=== PATIENT | male | born 2000 | race Caucasian/White ===

== ENCOUNTER 2022-05-03 13:04 | Outpatient (REF) | payer OTHER, SELFPAY ==
--- NOTE | ~2022-05-03 | XR_ITS ---
EXAMINATION: XR HAND, RIGHT CLINICAL INFORMATION: Contusion COMPARISON:
== END 2022-05-03 13:05 | disposition home or self-care (01) ==
LOC: HO.HMGCX 13:04
PROVIDERS: PCP Pediatrics; Visit Provider Internal Medicine
DX: S60.221A Contusion of right hand, initial encounter (principal); X58.XXXA Exposure to other specified factors, initial encounter; Y93.9 Activity, unspecified; Y92.9 Unspecified place or not applicable; Y99.8 Other external cause status
CPT/HCPCS: 73130

== ENCOUNTER → 2022-05-07 10:31 | Outpatient (BNVA) | payer OTHER, SELFPAY | PROVIDERS: PCP Pediatrics; Visit Provider Physician Assistant | DX: S62.336A Displaced fracture of neck of fifth metacarpal bone, right hand, initial encounter for closed fracture (principal) | CPT/HCPCS: 29085 ==

== ENCOUNTER 2022-06-04 07:59 | Outpatient (REF) | payer OTHER, SELFPAY ==
--- NOTE | ~2022-06-04 | XR_ITS ---
EXAMINATION: XR HAND, RIGHT CLINICAL INFORMATION: Right hand pain. COMPARISON: None TECHNIQUE: PA, lateral, and oblique views of the right hand. FINDINGS: Again seen is a boxer's fracture involving the 5th metacarpal. Alignment is same when compared to the prior study. No significant interval healing or periosteal fusion has taken place. XR/XR hand RT min 3V IMPRESSION: Continued presence of boxer's fracture 5th metacarpal.
== END 2022-06-04 08:00 | disposition home or self-care (01) ==
LOC: HO.HOSX 07:59
PROVIDERS: Visit Provider Physician Assistant
DX: M79.641 Pain in right hand (principal)
CPT/HCPCS: 73130

== ENCOUNTER 2022-07-30 16:51 | Outpatient (REF) | payer OTHER, SELFPAY ==
--- NOTE | ~2022-07-30 | XR_ITS ---
EXAMINATION: XR HAND, RIGHT CLINICAL INFORMATION: Pain COMPARISON: 06/04/2022 TECHNIQUE: PA, lateral, and oblique views of the right hand. FINDINGS: Healed anteriorly angulated boxer fracture neck of the fifth metacarpal. No new fractures. No destructive bone lesion, bone alignments otherwise satisfactory. Metacarpophalangeal and interphalangeal joints are normal. XR/XR hand RT min 3V IMPRESSION: Healed anteriorly angulated Boxer's fracture neck of the fifth metacarpal.
== END 2022-07-30 16:52 | disposition home or self-care (01) ==
LOC: HO.HOSX 16:51
PROVIDERS: Visit Provider Physician Assistant
DX: S62.336D Displaced fracture of neck of fifth metacarpal bone, right hand, subsequent encounter for fracture with routine healing (principal)
CPT/HCPCS: 73130

== ENCOUNTER 2023-02-10 13:37 | Emergency (ER) | payer OTHER, SELFPAY ==
--- NOTE | ~2023-02-10 | CT_ITS ---
EXAMINATION: CT ABDOMEN AND PELVIS WITH CONTRAST CLINICAL INFORMATION: Diffuse abdominal pain, vomiting. COMPARISON: None available. TECHNIQUE: Multidetector volumetric images were obtained from the superior aspect of the liver through the pubic symphysis following administration 85 mL of Omnipaque 350 intravenous contrast. Sagittal and coronal reformatted images were obtained on the technologist's workstation. Oral contrast: No This CT examination was performed using dose optimization techniques as appropriate, variously including the following: *Automated exposure control *Adjustment of mA and/or kV according to patient size (this includes techniques or standardized protocols for targeted exams where dose is matched to indication/reason for exam; i.e. extremities or head) *Use of iterative reconstruction technique DLP: 495 mGy-cm FINDINGS: LUNG BASES: The visualized lung bases are unremarkable. LIVER, GALLBLADDER, AND BILIARY TREE: The liver is normal in size, shape, and attenuation. No focal hepatic lesion or biliary ductal dilatation is present. The gallbladder is unremarkable with no evidence of radiopaque gallstones, gallbladder wall thickening, or obvious pericholecystic inflammatory changes. PANCREAS: Unremarkable. SPLEEN: Unremarkable. ADRENAL GLANDS: Unremarkable. KIDNEYS AND URETERS: The kidneys are normal in size, shape, and attenuation. No hydronephrosis, hydroureter, or calculi seen. No perinephric stranding. BLADDER: Unremarkable. GASTROINTESTINAL TRACT: The small and large bowel are unremarkable. The appendix is unremarkable. ABDOMINAL WALL: No significant hernia is appreciated. LYMPH NODES: Normal. VASCULAR: Unremarkable. PELVIC VISCERA: Unremarkable. OSSEOUS STRUCTURES: Unremarkable. CT/CT abdomen pelvis w IV con IMPRESSION: No acute abnormality to explain the patient's symptoms.
[2023-02-10 13:48] VITALS: BP 152/86; PULSE 124; RESP 18; TEMP 36.4; O2SAT 96; BMI 28.0
--- NOTE | 2023-02-10 13:52 | ED_ITS ---
HPI - Abdominal Pain General Chief Complaint: Abdominal Pain Stated Complaint: vomiting, chills, pale Time Seen by Provider: 02/10/23 17:00 Source: patient Mode of arrival: ambulatory Limitations: no limitations History of Present Illness HPI narrative: 22-year-old male presents to the ED for abdominal pain and vomiting starting today. Patient denies any a symptoms, flank pain, or back pain. Patient states some diarrhea Related Data Previous Rx's Medication Instructions Recorded naproxen 500 mg tablet 500 mg PO BID PRN pain 7 days #14 02/10/23 tabs Allergies Allergy/AdvReac Type Severity Reaction Status Date / Time No Known Allergies Allergy Verified 11/29/22 12:47 Review of Systems Review of Systems abdominal pain, diarrhea, vomiting Yes all other systems are reviewed and are negative [facility] Past Medical History Surgical History (Updated 05/07/22 @ 10:57 by Malu Benavides RN) Hx of tonsillectomy Social History Social History (Updated 05/07/22 @ 10:56 by Malu Benavides RN) Patient Tobacco Use Status: Never used Tobacco Smoked in Last 30 Days: No Use of substances other than those prescribed or required for medical reasons: No Advance Directives: No Advance Directives Information Provided: No Current occupational status: other Current occupation: Right handed, not currently working and not a student currently Physical Exam ED Vital Signs: Vital Signs - 24 hr 02/10/23 13:48 02/10/23 16:58 02/10/23 18:00 Temperature 97.6 F 98.9 F 99.7 F Pulse Rate 124 H 119 H Respiratory Rate 18 16 Blood Pressure 152/86 H 129/77 130/74 Pulse Oximetry 96 97 Oxygen Delivery Method Room Air Room Air 02/10/23 19:29 02/10/23 20:46 02/10/23 23:25 Temperature 99.0 F 99.5 F 97.9 F Pulse Rate 130 H 120 H 110 H Respiratory Rate 18 18 14 Blood Pressure 130/72 129/71 127/76 Pulse Oximetry 99 99 96 Oxygen Delivery Method Room Air Room Air Room Air BMI result Body Mass Index 28.0 Const General: cooperative, healthy appearing, comfortable, no acute distress, well developed and alert Orientation/consciousness: oriented to person, oriented to place, oriented to time and patient oriented x3 HENMT Head: Yes normal to inspection, Yes No palpable skull fracture present, Yes normocephalic, Yes atraumatic and No abrasion Ears: hearing grossly normal bilaterally, external ears normal, TM's normal bilaterally, TM normal on the right, TM normal on the left, EAC's normal, mastoids normal and no periauricular adenopathy Throat: Yes posterior oropharynx normal, Yes tonsils normal and Yes uvula midline Neck Neck: Yes normal visual inspection, Yes full ROM, Yes no lymphadenopathy, Yes no meningeal signs, Yes trachea midline, Yes supple, No anterior neck swelling and No tender Chest Chest palpation & inspection: normal inspection of the chest and normal palpation of entire chest wall Resp Effort & Inspection: normal respiratory effort and able to speak in complete sentences Auscultation: clear to auscultation bilaterally Cardio Jugular venous distension: no JVD Heart sounds: S1 normal heart sound present and S2 normal heart sound present GI Inspection: Yes normal to inspection and No abdominal wall ecchymosis Palpation (GI): Soft to palpation, not firm, nontender, no guarding and not rigid General: No CVA tenderness and Yes no CVA tenderness Back/Spine/Pelvis Back: no CVA tenderness, No CVA tenderness and No back tenderness Skin General skin exam: no rashes or lesions noted, elasticity normal and turgor normal Neuro General: oriented to person, oriented to place, oriented to time, patient oriented x3, gait normal, tone normal, moves all extremities, Normal light touch and pain sensation, no meningeal signs, no focal motor deficits, CN's II-XI intact bilaterally and normal sensation to monofilament Extrem General: Yes normal to inspection and Yes full ROM Psych Appearance: grossly normal, well kempt and not disheveled Course Course Course Narrative: This is a rapid medical exam. Deferred additional HPI, ROS, PE to primary provider. 22yo male with no medical history here with abdominal pain, vomiting today. No fevers, chills, diarrhea, urinary symptoms, constipation. +diffuse abdominal pain on exam. WIll need labs, UA, covid screen. Will give SL zofran +tachy in triage, all other vss Reevaluation(s) Reevaluation #1: Lactic improved after 3rd liter of IV fluids, patient unable to provide stool sample in ED. Strict return precautions discussed. Will discharge home as admission was discussed with Dr. Parikh by previous provider. Time: 00:00 Medical Decision Making Medical Decision Making MDM Narrative: 22-year-old male presents to ED for abdominal pain, vomiting, and diarrhea beginning today. Patient denies any dysuria, hematuria, or symptoms. Abdominal CT scan came back normal. White blood cell count extremity and his wound elevated lactate patient was given Zosyn. UA came back showing blood but no UTI. Discussed with hospitalist of the [facility] who states patient could be discharged most likely has viral syndrome and no need to consult surgery. He states patient does not have a UTI. Abdominal exam on re-evaluation benign and nontender on palpation. Negative for guarding or peritonitis. patient denies any testicular pain, scrotal pain, penile discharge, penile lesions. Differential Diagnosis Differential Diagnoses: The differential diagnosis associated with the presentation includes ( Appendicitis, cholecystitis, gallstones, kidney stones, pyelonephritis, UTI, for) Admission/Observation Consideration of admission/observation: Escalation of care including ad mission/observation considered Consult Healthcare Provider Management of the patient was discussed with: Narrative Writer ([facility] Lab Data [facility] Lab Attestation statement: I reviewed the patient's lab results. 02/10/23 14:39 02/10/23 14:39 Labs: Lab Results 02/10/23 02/10/23 02/10/23 Range/Units 14:39 14:39 14:39 WBC 17.3 H (4.8-10.8) X10*3/uL RBC 5.62 (4.60-5.80) X10*6/uL Hgb 16.7 (14.0-18.0) g/dl Hct 48.0 (42.0-52.0) % MCV 85.4 (80.0-98.0) fL MCH 29.7 (27.0-33.0) pg MCHC 34.8 (31.0-36.0) g/dl RDW 12.4 (11.0-16.0) % Plt Count 274 (160-400) X10*3/uL MPV 10.2 (9.4-12.4) fL Immature Gran % (Auto) 0.4 (0.0-0.4) % Neut % (Auto) 93.3 H (45-73) % Lymph % (Auto) 1.9 L (20-40) % Mcpherson % (Auto) 4.2 (2-11) % Eos % (Auto) 0.0 (0-4) % Baso % (Auto) 0.2 (0-2) % Lymph # (Auto) 0.3 L (1.2-4.9) X10*3/uL Mcpherson # (Auto) 0.7 (0.1-1.2) X10*3/uL Eos # (Auto) 0.0 (0.0-0.4) X10*3/uL Baso # (Auto) 0.0 (0.0-0.2) X10*3/uL Abs Immat Gran (auto) 0.07 H (0.00-0.03) X10*3/uL Absolute Neuts (auto) 16.2 H (2.0-8.3) x10*3/uL Absolute Nucleated RBC 0.000 (0.0-0.012) X10*3/uL Nucleated RBC % (auto) 0.0 (0.0-0.2) /100WBC Smear Tech's Comments VERIFIED Sodium 139 (135-145) mmol/L Potassium 3.9 (3.3-5.1) mmol/L Chloride 104 (96-108) mmol/L Carbon Dioxide 22 (22-29) mmol/L Anion Gap 17 (12-20) BUN 13 (9-16) mg/dL Creatinine 0.81 (0.5-1.4) mg/dL Estim Creat Clear Calc 138.7 Estimated GFR > 60 Random Glucose 114 (60-115) mg/dL Lactic Acid (0.5-2.0) mmol/L Lactic Acid F/U @ 2Hr (0.5-2.0) mmol/L Lactic Acid F/U @ 4Hr (0.5-2.0) mmol/L Calcium 9.9 (8.4-10.2) mg/dL Total Bilirubin 1.3 H (0.0-1.0) mg/dL Direct Bilirubin 0.4 (0.0-0.5) mg/dL AST 28 (5-37) U/L ALT 47 H (0-40) U/L Alkaline Phosphatase 62 (39-117) U/L Total Protein 8.0 (6.5-8.0) g/dL Albumin 4.9 (3.5-5.0) g/dL Lipase 9 (8-78) U/L Urine Color Urine Appearance Urine pH (5.0-9.0) Ur Specific Worthing (1.005-1.025) Urine Protein (Neg-Trace) mg/dL Urine Glucose (UA) (Negative) mg/dL Urine Ketones (Negative) mg/dL Urine Blood (Negative) Urine Nitrite (Negative) Ur Leukocyte Esterase (Negative) Urine RBC (0-2) /HPF Urine WBC (0-5) /HPF Ur Squamous Epith Cells (0-2) /HPF Urine Bacteria (None Seen) Hyaline Casts (0-2) /LPF COVID-19 (SCOTT) Negative (Negative) COVID-19 Clin Com See Note 02/10/23 02/10/23 02/10/23 Range/Units 15:07 17:07 19:53 WBC (4.8-10.8) X10*3/uL RBC (4.60-5.80) X10*6/uL Hgb (14.0-18.0) g/dl Hct (42.0-52.0) % MCV (80.0-98.0) fL MCH (27.0-33.0) pg MCHC (31.0-36.0) g/dl RDW (11.0-16.0) % Plt Count (160-400) X10*3/uL MPV (9.4-12.4) fL Immature Gran % (Auto) (0.0-0.4) % Neut % (Auto) (45-73) % Lymph % (Auto) (20-40) % Mcpherson % (Auto) (2-11) % Eos % (Auto) (0-4) % Baso % (Auto) (0-2) % Lymph # (Auto) (1.2-4.9) X10*3/uL Mcpherson # (Auto) (0.1-1.2) X10*3/uL Eos # (Auto) (0.0-0.4) X10*3/uL Baso # (Auto) (0.0-0.2) X10*3/uL Abs Immat Gran (auto) (0.00-0.03) X10*3/uL Absolute Neuts (auto) (2.0-8.3) x10*3/uL Absolute Nucleated RBC (0.0-0.012) X10*3/uL Nucleated RBC % (auto) (0.0-0.2) /100WBC Smear Tech's Comments Sodium (135-145) mmol/L Potassium (3.3-5.1) mmol/L Chloride (96-108) mmol/L Carbon Dioxide (22-29) mmol/L Anion Gap (12-20) BUN (9-16) mg/dL Creatinine (0.5-1.4) mg/dL Estim Creat Clear Calc Estimated GFR Random Glucose (60-115) mg/dL Lactic Acid 2.4 H* (0.5-2.0) mmol/L Lactic Acid F/U @ 2Hr 2.4 H* (0.5-2.0) mmol/L Lactic Acid F/U @ 4Hr (0.5-2.0) mmol/L Calcium (8.4-10.2) mg/dL Total Bilirubin (0.0-1.0) mg/dL Direct Bilirubin (0.0-0.5) mg/dL AST (5-37) U/L ALT (0-40) U/L Alkaline Phosphatase (39-117) U/L Total Protein (6.5-8.0) g/dL Albumin (3.5-5.0) g/dL Lipase (8-78) U/L Urine Color Dark Yellow Urine Appearance Clear Urine pH 6.5 (5.0-9.0) Ur Specific [place] 1.025 (1.005-1.025) Urine Protein Trace (Neg-Trace) mg/dL Urine Glucose (UA) Negative (Negative) mg/dL Urine Ketones 40 (Negative) mg/dL Urine Blood Trace H (Negative) Urine Nitrite Negative (Negative) Ur Leukocyte Esterase Trace H (Negative) Urine RBC 11-20 H (0-2) /HPF Urine WBC 0-5 (0-5) /HPF Ur Squamous Epith Cells 0-2 (0-2) /HPF Urine Bacteria None Seen (None Seen) Hyaline Casts 0-2 (0-2) /LPF COVID-19 (SCOTT) (Negative) COVID-19 Clin Com 02/10/23 Range/Units 23:17 WBC (4.8-10.8) X10*3/uL RBC (4.60-5.80) X10*6/uL Hgb (14.0-18.0) g/dl Hct (42.0-52.0) % MCV (80.0-98.0) fL MCH (27.0-33.0) pg MCHC (31.0-36.0) g/dl RDW (11.0-16.0) % Plt Count (160-400) X10*3/uL MPV (9.4-12.4) fL Immature Gran % (Auto) (0.0-0.4) % Neut % (Auto) (45-73) % Lymph % (Auto) (20-40) % Mcpherson % (Auto) (2-11) % Eos % (Auto) (0-4) % Baso % (Auto) (0-2) % Lymph # (Auto) (1.2-4.9) X10*3/uL Mcpherson # (Auto) (0.1-1.2) X10*3/uL Eos # (Auto) (0.0-0.4) X10*3/uL Baso # (Auto) (0.0-0.2) X10*3/uL Abs Immat Gran (auto) (0.00-0.03) X10*3/uL Absolute Neuts (auto) (2.0-8.3) x10*3/uL Absolute Nucleated RBC (0.0-0.012) X10*3/uL Nucleated RBC % (auto) (0.0-0.2) /100WBC Smear Tech's Comments Sodium (135-145) mmol/L Potassium (3.3-5.1) mmol/L Chloride (96-108) mmol/L Carbon Dioxide (22-29) mmol/L Anion Gap (12-20) BUN (9-16) mg/dL Creatinine (0.5-1.4) mg/dL Estim Creat Clear Calc Estimated GFR Random Glucose (60-115) mg/dL Lactic Acid (0.5-2.0) mmol/L Lactic Acid F/U @ 2Hr (0.5-2.0) mmol/L Lactic Acid F/U @ 4Hr 1.8 (0.5-2.0) mmol/L Calcium (8.4-10.2) mg/dL Total Bilirubin (0.0-1.0) mg/dL Direct Bilirubin (0.0-0.5) mg/dL AST (5-37) U/L ALT (0-40) U/L Alkaline Phosphatase (39-117) U/L Total Protein (6.5-8.0) g/dL Albumin (3.5-5.0) g/dL Lipase (8-78) U/L Urine Color Urine Appearance Urine pH (5.0-9.0) Ur Specific [place] (1.005-1.025) Urine Protein (Neg-Trace) mg/dL Urine Glucose (UA) (Negative) mg/dL Urine Ketones (Negative) mg/dL Urine Blood (Negative) Urine Nitrite (Negative) Ur Leukocyte Esterase (Negative) Urine RBC (0-2) /HPF Urine WBC (0-5) /HPF Ur Squamous Epith Cells (0-2) /HPF Urine Bacteria (None Seen) Hyaline Casts (0-2) /LPF COVID-19 (SCOTT) (Negative) COVID-19 Clin Com Independent Interpretation I performed an independent interpretation of an: CT Scan Radiology Impression Discussion of test interpretation with radiology: I have reviewed the radiologis t's reading. Independent Historian Clinical information obtained from an independent historian. History obtained from or confirmed by: Other (Mother) External Record Review External record reviewed: Other (Prior ED visit) Prescription Management I considered prescription management with: Pain Medication Medications Administered Discontinued Medications Generic Name Dose Route Start Last Admin Trade Name Freq PRN Reason Stop Dose Admin Al Hydroxide/Mg Hydroxide 30 ml 02/10/23 19:26 02/10/23 19:56 Magnesium Hydrox/Alum Hydrox 30 Ml Oral.Susp PO 02/10/23 19:27 30 ml ONCE ONE Administration Sodium Chloride 1,000 mls @ 999 mls/hr 02/10/23 16:50 02/10/23 18:47 Ns IV 02/10/23 17:50 Infused .Q1H1M STA Infusion Piperacillin Sod/Tazobactam 50 mls @ 100 mls/hr 02/10/23 17:39 02/10/23 18:47 Sod 3.375 gm/ Sodium Chloride IV 02/10/23 18:08 Infused ONCE ONE Infusion Sodium Chloride 2,289 mls @ 2,289 mls/hr 02/10/23 17:53 02/10/23 20:34 Ns 30 ml/kg infuse over 1 hr (2289 ml) 02/10/23 18:52 Infused IV Infusion .Q1H STA Sodium Chloride 1,000 mls @ 999 mls/hr 02/10/23 20:45 02/10/23 23:13 Ns IV 02/10/23 21:45 Infused .Q1H1M SHERYL Infusion Iohexol 100 ml 02/10/23 17:25 02/10/23 17:26 Iohexol 350 Mg/Ml 100 Ml Infus..Btl IV 02/10/23 17:26 85 ml ONCE ONE Administration Ketorolac Tromethamine 30 mg 02/10/23 19:24 02/10/23 19:55 Ketorolac Tromethamine 30 Mg/Ml Vial IVPUSH 02/10/23 19:25 30 mg ONCE ONE Administration Ondansetron HCl 4 mg 02/10/23 13:54 02/10/23 14:01 Ondansetron Odt 4 Mg Tab.Rapdis TRANSLINGU 02/10/23 13:55 4 mg ONCE ONE Administration Discharge Plan Discharge Clinical Impression: Abdominal pain, Gastroenteritis Patient Disposition: Home, Self-Care Instructions: Gastroenteritis (ED), Abdominal Pain (ED) Additional Instructions: Return to the ED immediately for any worsening abdominal pain, flank pain, fever, chills, nausea, vomiting, retractable diarrhea, blood in stool, testicular pain, scrotal pain, penile discharge, penile lesions, dysuria, hematuria, flank pain, back pain, or any other concerning symptoms. Please follow up with PCP Prescriptions: New naproxen 500 mg tablet 500 mg PO BID PRN (Reason: pain) 7 Days Qty: 14 0RF Stand Alone Forms: Work/School Release Interventions: ED Discharge Assessment Last Done: 02/11/23 00:15 Discharge Date/Time: 02/11/23 00:17 Print Language: Citizen [place]
[2023-02-10] MEDS: Ondansetron ODT 4 MG TAB.RAPDIS TRANSLINGU (14:01)
[2023-02-10 14:56] LABS: Basophils Percent Auto 0.2 % (0-2); Hemoglobin 16.7 g/dl (14.0-18.0); Imm Gran Abs Auto 0.07 X10*3/uL (0.00-0.03); Imm Gran Pct Auto 0.4 % (0.0-0.4); Lymphocytes Absolute Auto 0.3 X10*3/uL (1.2-4.9); Lymphocytes Percent Auto 1.9 % (20-40); MANUAL DIFF FLAG SCAN; Mean Corpuscular HGB Conc 34.8 g/dl (31.0-36.0); Mean Corpuscular Hemoglobin 29.7 pg (27.0-33.0); Mean Corpuscular Volume 85.4 fL (80.0-98.0); Mean Platelet Volume 10.2 fL (9.4-12.4); Monocytes Absolute Auto 0.7 X10*3/uL (0.1-1.2); Monocytes Percent Auto 4.2 % (2-11); Neutrophils Absolute Auto 16.2 x10*3/uL (2.0-8.3); Neutrophils Percent Auto 93.3 % (45-73); Platelet Count 274 X10*3/uL (160-400); Red Blood Count 5.62 X10*6/uL (4.60-5.80); Red Cell Distribution Width 12.4 % (11.0-16.0); SCAN SMEAR FLAG 1; White Blood Count 17.3 X10*3/uL (4.8-10.8)
[2023-02-10 15:18] LABS: Alanine Aminotransferase 47 U/L (0-40); Albumin Level 4.9 g/dL (3.5-5.0); Alkaline Phosphatase 62 U/L (39-117); Anion Gap 17 (12-20); Aspartate Amino Transferase 28 U/L (5-37); Bilirubin Direct 0.4 mg/dL (0.0-0.5); Bilirubin Total 1.3 mg/dL (0.0-1.0); Blood Urea Nitrogen 13 mg/dL (9-16); Calcium 9.9 mg/dL (8.4-10.2); Carbon Dioxide 22 mmol/L (22-29); Chloride 104 mmol/L (96-108); Creatinine Clr Calc Pharmacy 138.7; Estimated Glomerular Filt Rate > 60; Glucose Random 114 mg/dL (60-115); Lipase 9 U/L (8-78); Potassium 3.9 mmol/L (3.3-5.1); Sodium 139 mmol/L (135-145)
[2023-02-10 15:20] LABS: Appearance Urine Clear; Color Urine Dark Yellow; Glucose Urine UA Negative (Negative); Leukocyte Esterase Urine Trace (Negative); Nitrite Urine Negative (Negative); PH 6.5 (5.0-9.0); Specific Gravity - Urine 1.025 (1.005-1.025); UMIC TRIGGER UACC YES; Urine Blood Trace (Negative); Urine Ketones 40 mg/dL (Negative); Urine Protein Trace mg/dL (Neg-Trace)
[2023-02-10 15:25] LABS: Bacteria Urine None Seen (None Seen); Hyaline Casts Urine 0-2 /LPF (0-2); Squamous Epithelial Cell Urine 0-2 /HPF (0-2); WBC Urine 0-5 /HPF (0-5)
[2023-02-10 15:38] LABS: SLIDE REVIEW VERIFIED
[2023-02-10 15:55] LABS: COVID-19 Test Negative (Negative); IDNOW Serial# BCCEAD1C
[2023-02-10 16:58] VITALS: BP 129/77; TEMP 37.2
[2023-02-10] MEDS: 0.9 % Sodium Chloride 1,000 ML 999 ML IV ×2 (17:18→21:22)
[2023-02-10] MEDS: iohexoL 350 MG/ML 100 ML INFUS..BTL IV (17:26)
[2023-02-10 17:37] LABS: Lactic Acid 2.4 mmol/L (0.5-2.0)
[2023-02-10] MEDS: Piperacillin Sodium/Tazobactam 3.375 GM in 0.9 % Sodium Chloride 50 ML IV (17:53)
[2023-02-10 18:00] VITALS: BP 130/74; PULSE 119; RESP 16; TEMP 37.6; O2SAT 97
--- NOTE | 2023-02-10 18:00 | PC.NURSE ---
first L of fluids and antibiotics infusing. waiting CT results. offering no complaints, call king in reach. tm
[2023-02-10] MEDS: SODIUM CHLORIDE 2289 ML IV (18:05)
[2023-02-10 19:15] LABS: Reflex Lactate? Lactic Acid Added
[2023-02-10 19:29] VITALS: BP 130/72; PULSE 130; RESP 18; TEMP 37.2; O2SAT 99
--- NOTE | 2023-02-10 19:30 | MHC.EDTECH ---
This tech assumed care of pt at 1900, vitals taken and pt's heart rate was elevated at 130 RN and PA were made aware. Patient was incont of liquid stool,pt in the bathroom getting cleaned at this time, will draw repeat lactic when pt is in room. RN aware
--- NOTE | 2023-02-10 19:30 | PC.NURSE ---
Spoke with mother of patient. Mother states that her son woke up yesterday with his eyes stuck shut. She took him to his quoter for evaluation. Today, patient presents with a cough. Resp even and unlabored. Appears comfortable. Mother states that he has had 3 wet diapers today.
[2023-02-10] MEDS: Ketorolac Tromethamine 30 MG/ML VIAL IVPUSH (19:55)
[2023-02-10] MEDS: Magnesium Hydrox/Alum Hydrox 30 ML ORAL.SUSP PO (19:56)
[2023-02-10 20:13] LABS: ~Lactic Acid-LAB USE ONLY 2.4 mmol/L (0.5-2.0)
[2023-02-10 20:46] VITALS: BP 129/71; PULSE 120; RESP 18; TEMP 37.5; O2SAT 99
[2023-02-10 21:57] LABS: Reflex Lactate? 2 Y
--- NOTE | 2023-02-10 22:46 | MHC.EDTECH ---
This tech went to draw a 3rd lactic, Pts fluids were still full the provider Jesenia MANRIQUE told this tech to have RN place a pressure bag and to wait to draw the repeat latic until fluids are done. LUBNA Gamble was made aware
[2023-02-10 23:25] VITALS: BP 127/76; PULSE 110; RESP 14; TEMP 36.6; O2SAT 96
[2023-02-10 23:48] LABS: ~Lactic Acid-LAB USE ONLY 1.8 mmol/L (0.5-2.0)
== END 2023-02-11 00:17 | disposition home or self-care (01) ==
PROVIDERS: Nurse Practitioner Family; Emergency Provider Student in an Organized Health Care Education/Training Program; PCP Pediatrics
DX: K52.9 Noninfective gastroenteritis and colitis, unspecified (principal); R10.2 Pelvic and perineal pain; R11.2 Nausea with vomiting, unspecified; Z79.899 Other long term (current) drug therapy; Z20.822 Contact with and (suspected) exposure to COVID-19; Z20.828 Contact with and (suspected) exposure to other viral communicable diseases
CPT/HCPCS: 36415; 74177; 80048; 80076; 81001; 83605; 83690; 85025; 87040; 87635; 96361; 96374; 96375; 99285; J1885; J2543; Q9967

== ENCOUNTER 2024-11-27 14:03 | Emergency (ER) | payer OTHER, SELFPAY ==
--- NOTE | ~2024-11-27 | CT_ITS ---
CLINICAL HISTORY: lower abdominal pain, bleeding, eval for colitis CT abdomen and pelvis with contrast Comparison: CT/AK/SR - CT ABDOMEN PELVIS W IV CON - 02/10/23 17:19 EDT Findings: No consolidation or effusion. Unremarkable gallbladder and solid organs. No urolithiasis. No bowel obstruction, pneumoperitoneum, or pneumatosis. Wall thickening versus underdistention of the descending colon. Pelvic contents unremarkable. Normal appendix. The bones are intact. IMPRESSION: Colitis versus underdistention of the descending colon. No perforation or abscess. This document has been electronically signed by: Tevin Sanchez MD on 11/27/2024 18:49:20
[2024-11-27 14:47] VITALS: BP 122/84; PULSE 92; RESP 16; TEMP 37; O2SAT 100; BMI 28.6
--- NOTE | 2024-11-27 14:50 | ED.ABDPAIN ---
HPI - Abdominal Pain General Chief Complaint: Abdominal Pain Stated Complaint: abd pain Time Seen by Provider: 11/27/24 16:32 Source: patient and family Mode of arrival: ambulatory Limitations: no limitations History of Present Illness ED Provider: Carie Palacios APRN HPI narrative: 24-year-old male with no known medical history presents the ER with complaints of lower abdominal discomfort which began this morning with bloody stools. Patient reports 3 episodes of bloody stools. Stool is mixed with bright red blood. No vomiting, urinary symptoms, fevers or chills. No recent travel. No recent antibiotic use. No sick contact. No personal or family history of inflammatory bowel disease. Related Data Previous Rx's ?Medication ?Instructions ?Recorded naproxen 500 mg tablet 500 mg PO BID PRN pain 7 days #14 02/10/23 tabs amoxicillin 875 mg-potassium 1 tab PO BID #14 tabs 11/27/24 clavulanate 125 mg tablet Allergies Allergy/AdvReac Type Severity Reaction Status Date / Time No Known Allergies Allergy Verified 11/27/24 14:52 Review of Systems Review of Systems Yes all other systems are reviewed and are negative Constitutional: Reports no additional constitutional complaints, Denies body ache(s), Denies chills, Denies fever(s), Denies headache(s) and Denies weakness Eyes: Reports no additional eye complaints and Denies change in vision Reports system reviewed and no additional complaints, except as documented, Denies dizziness, Denies headache(s), Denies nasal congestion, Denies nasal discharge and Denies neck pain Cardiovascular: Reports no additional cardiovascular complaints, Denies chest pain, Denies leg edema and Denies dyspnea Respiratory: Reports no additional respiratory complaints, Denies cough and Denies dyspnea Gastrointestinal: Reports no additional gastrointestinal complaints, Reports abdominal pain, Denies melena, Reports hematochezia, Denies diarrhea, Denies nausea and Denies vomiting Genitourinary: Denies urinary incontinence Musculoskeletal: Reports no additional musculoskeletal complaints, Denies back pain, Denies arthralgias, Denies joint swelling, Denies neck pain, Denies numbness and Denies tingling Skin/Breast: Reports system reviewed and no additional complaints, except as docu and Denies rash Reports system reviewed and no additional complaints, except as documented, Denies Abnormal speech present, Denies dizziness, Denies headache(s), Denies numbness, Denies tingling and Denies weakness PMF Past Medical History Attestation statement: The following information was validated with the patient. Source: old records reviewed and nursing notes reviewed Surgical History Hx of tonsillectomy Social History Social History Patient Tobacco Use Status: Never used Tobacco Smoked in Last 30 Days: No Use of substances other than those prescribed or required for medical reasons: No Advance Directives: No Advance Directives Information Provided: Yes Current occupational status: other Current occupation: Right handed, not currently working and not a student currently Physical Exam ED Vital Signs: Vital Signs - 24 hr 11/27/24 14:47 11/27/24 16:47 Temperature 98.6 F Pulse Rate 92 92 Respiratory Rate 16 18 Blood Pressure 122/84 129/71 Pulse Oximetry 100 99 Oxygen Delivery Method Room Air Room Air BMI result Body Mass Index 28.6 Const General: cooperative, healthy appearing, comfortable and no acute distress Orientation/consciousness: patient oriented x3 Limitations: no limitations HENMT Head: Yes normal to inspection Ears: hearing grossly normal bilaterally General nose exam: Normal external nose present Face and sinus: Yes normal facial exam Mouth: Normal oral and palatal mucosa present Throat: Yes posterior oropharynx normal Eyes General: appearance normal, both eyes and all related structures Pupils: Equal, round and reactive pupils present Neck Neck: Yes normal visual inspection Chest Chest palpation & inspection: normal inspection of the chest Resp Effort & Inspection: normal respiratory effort Auscultation: clear to auscultation bilaterally Cardio Rate: regular rate Rhythm: regular rhythm Peripheral pulses: Peripheral pulses 2+ throughout GI Other: BRB per rectum Inspection: Yes normal to inspection Palpation (GI): Soft to palpation, Tenderness to palpation present (GI) in the LLQ and in the RLQ; with no rebound tenderness and no guarding Auscultation: normal bowel sounds Rectal Exam - Male: Yes visual inspection normal, Yes normal sphincter tone and Yes heme positive stool Back/Spine/Pelvis Thoracic/Lumbar Spine: thoracic and lumbar spine normal to inspection Skin General skin exam: no rashes or lesions noted Neuro General: patient oriented x3, no focal motor deficits and normal sensation to monofilament Cranial nerves: Yes Equal, round and reactive pupils present Cognition (Neuro): normal cognition Speech: No Abnormal speech present Gait exam (Neuro): Normal gait present Motor exam (neuro): 5/5 motor strength present throughout Extrem General: Yes normal to inspection Course Course Course Narrative: This is an RME: Additional HPI, ROS, PE not included below will be deferred to primary provider. RME assessment and note performed by: Olga Farias PA-C This is a 17-lcla-rrd-male with no known medical problems, who presents to the ER with complaints of abdominal pain and diarrhea since this morning. Reporting that he did notice bright red blood per rectum in toilet and as well as on the toilet paper. No recent known food exposures, travel. No sick contacts. No vomiting. Patient was well-appearing, abdomen is soft, nontender. Plan: Labs, UA Reevaluation(s) Reevaluation #1: CT is consistent with colitis versus underdistention of the descending colon. Will discharge patient home with antibiotic and follow up outpatient. Reviewed worrisome signs and symptoms of when to return in the emergency room. Comfortable plan for discharge home Medical Decision Making Medical Decision Making MDM Narrative: 24-year-old male with no known medical history presents the ER with complaints of lower abdominal discomfort which began this morning with bloody stools. Patient reports 3 episodes of bloody stools. Stool is mixed with bright red blood. No vomiting, urinary symptoms, fevers or chills. No recent travel. No recent antibiotic use. No sick contact. No personal or family history of inflammatory bowel disease. TTP RLQ/LLQ with no rebound or guarding +BS Heme + stool-BRB per rectum VSS Will obtain labs, UA, occult, Ct A/P Differential Diagnosis Differential Diagnoses: The differential diagnosis associated with the presentation includes Colitis, diverticulitis,GIB, hemorrhoids, gastroenteritis Admission/Observation Consideration of admission/observation: Escalation of care including admission/observation considered No additional episodes of bloody stool since being here, labs are unremarkable with stable hemoglobin, vitals stable, abdomen nonacute Will discharge home with follow up outpatient Lab Data MDM Lab Attestation statement: I reviewed the patient's lab results. 11/27/24 15:20 11/27/24 15:20 Labs: Lab Results 11/27/24 11/27/24 Range/Units 15:20 15:58 WBC 13.3 H (4.8-10.8) X10*3/uL RBC 5.35 (4.60-5.80) X10*6/uL Hgb 15.8 (14.0-18.0) g/dl Hct 46.1 (42.0-52.0) % MCV 86.2 (80.0-98.0) fL MCH 29.5 (27.0-33.0) pg MCHC 34.3 (31.0-36.0) g/dl RDW 12.7 (11.0-16.0) % Plt Count 279 (160-400) X10*3/uL MPV 9.9 (9.4-12.4) fL Immature Gran % (Auto) 0.3 (0.0-0.4) % Neut % (Auto) 84.7 H (45-73) % Lymph % (Auto) 7.8 L (20-40) % [place] % (Auto) 6.7 (2-11) % Eos % (Auto) 0.1 (0-4) % Baso % (Auto) 0.4 (0-2) % Lymph # (Auto) 1.0 L (1.2-4.9) X10*3/uL [place] # (Auto) 0.9 (0.1-1.2) X10*3/uL Eos # (Auto) 0.0 (0.0-0.4) X10*3/uL Baso # (Auto) 0.1 (0.0-0.2) X10*3/uL Abs Immat Gran (auto) 0.04 H (0.00-0.03) X10*3/uL Absolute Neuts (auto) 11.3 H (2.0-8.3) x10*3/uL Absolute Nucleated RBC 0.000 (0.0-0.012) X10*3/uL Nucleated RBC % (auto) 0.0 (0.0-0.2) /100WBC Sodium 139 (135-145) mmol/L Potassium 4.2 (3.3-5.1) mmol/L Chloride 103 (96-108) mmol/L Carbon Dioxide 24 (22-29) mmol/L Anion Gap 16 (12-20) BUN 8 L (9-16) mg/dL Creatinine 0.79 (0.5-1.4) mg/dL Estim Creat Clear Calc 141.1 Estimated GFR > 60 Random Glucose 103 (60-115) mg/dL Calcium 9.9 (8.4-10.2) mg/dL Magnesium 1.9 (1.6-2.6) mg/dL Total Bilirubin 0.6 (0.0-1.0) mg/dL Direct Bilirubin 0.2 (0.0-0.5) mg/dL AST 44 H (5-37) U/L ALT 80 H (0-40) U/L Alkaline Phosphatase 83 (39-117) U/L Total Protein 8.2 H (6.5-8.0) g/dL Albumin 5.0 (3.5-5.0) g/dL Lipase 13 (8-78) U/L Urine Color Yellow Urine Appearance Clear Urine pH 6.0 (5.0-9.0) Ur Specific [place] 1.015 (1.005-1.025) Urine Protein Negative (Neg-Trace) mg/dL Urine Glucose (UA) Negative (Negative) mg/dL Urine Ketones Negative (Negative) mg/dL Urine Blood Small (1+) H (Negative) Urine Nitrite Negative (Negative) Ur Leukocyte Esterase Negative (Negative) Urine RBC 6-10 H (0-2) /HPF Urine WBC 0-5 (0-5) /HPF Ur Squamous Epith Cells 0-2 (0-2) /HPF Urine Bacteria None Seen (None Seen) Hyaline Casts 0-2 (0-2) /LPF Stool Occult Blood POSITIVE (NEGATIVE) C. difficile Tox B Gene NEGATIVE (Negative) Influenza Type A (PCR) NEGATIVE (Negative) Influenza Type B (PCR) NEGATIVE (Negative) RSV RNA Qual (PCR) NEGATIVE (Negative) SARS-CoV-2 RNA (RT-PCR) NEGATIVE (Negative) Independent Interpretation I performed an independent interpretation of an: CT Scan Interpretation: I independently reviewed the CAT scan agree with the radiology report Radiology Impression Discussion of test interpretation with radiology: I have reviewed the radiologist's reading. Radiologist Impression: [address] [address] [address] Scan Report Signed Patient: Galileo Vázquez MR#: [id number] : 2000 Acct:[id number] Age/Sex: 24 / M ADM Date: 11/27/24 Loc: HO.ED Attending Dr: Ordering Physician: Carie Palacios NP Date of Service: 11/27/24 Procedure(s): CT abdomen pelvis w IV con Accession Number(s): [id number] cc: Irma Figueredo MD; Carie Palacios NP~ Report Number: [id number]: Total DLP = 504.00 mGy-cm CLINICAL HISTORY: lower abdominal pain, bleeding, eval for colitis CT abdomen and pelvis with contrast Comparison: CT/LA/SR - CT ABDOMEN PELVIS W IV CON - 02/10/23 17:19 EDT Findings: No consolidation or effusion. Unremarkable gallbladder and solid organs. No urolithiasis. No bowel obstruction, pneumoperitoneum, or pneumatosis. Wall thickening versus underdistention of the descending colon. Pelvic contents unremarkable. Normal appendix. The bones are intact. IMPRESSION: Colitis versus underdistention of the descending colon. No perforation or abscess. Medications Administered Discontinued Medications Generic Name Dose Route Start Last Admin Trade Name Freq PRN Reason Stop Dose Admin Iohexol 100 ml 11/27/24 17:29 11/27/24 17:30 Iohexol 350 Mg/Ml 100 Ml Infus..Btl IV 11/27/24 17:30 85 ml ONCE ONE Administration Discharge Plan Discharge Clinical Impression: Abdominal pain, Colitis Instructions: Abdominal Pain (ED), Colitis (ED) Additional Instructions: Your blood work, urine testing Your Ct scan shows inflammation of the colon which can be seen with colitis. Avoid taking aspirin, Advil [place] diet Tylenol for pain as needed Please follow up outpatient with your primary care doctor Return to the emergency room for any worsening abdominal pain, fever >100.4, vomiting or increase in bloody stools, dizziness or weakness Prescriptions: New amoxicillin-pot clavulanate 875-125 mg tablet 1 tab PO BID Qty: 14 0RF No Action naproxen 500 mg tablet 500 mg PO BID PRN (Reason: pain) 7 Days Qty: 14 0RF Referrals: Irma Figueredo MD [Primary Care Provider] - 1 week Cole Stanford MD [Physician] - 1 week Print Language: Hebrew
[2024-11-27 15:26] LABS: MANUAL DIFF FLAG NO
[2024-11-27 15:28] LABS: Basophils Absolute Auto 0.1 X10*3/uL (0.0-0.2); Basophils Percent Auto 0.4 % (0-2); Eosinophils Percent Auto 0.1 % (0-4); Hematocrit 46.1 % (42.0-52.0); Hemoglobin 15.8 g/dl (14.0-18.0); Imm Gran Abs Auto 0.04 X10*3/uL (0.00-0.03); Imm Gran Pct Auto 0.3 % (0.0-0.4); Lymphocytes Percent Auto 7.8 % (20-40); Mean Corpuscular HGB Conc 34.3 g/dl (31.0-36.0); Mean Corpuscular Hemoglobin 29.5 pg (27.0-33.0); Mean Corpuscular Volume 86.2 fL (80.0-98.0); Mean Platelet Volume 9.9 fL (9.4-12.4); Monocytes Absolute Auto 0.9 X10*3/uL (0.1-1.2); Monocytes Percent Auto 6.7 % (2-11); Neutrophils Absolute Auto 11.3 x10*3/uL (2.0-8.3); Neutrophils Percent Auto 84.7 % (45-73); Platelet Count 279 X10*3/uL (160-400); Red Blood Count 5.35 X10*6/uL (4.60-5.80); Red Cell Distribution Width 12.7 % (11.0-16.0); White Blood Count 13.3 X10*3/uL (4.8-10.8)
[2024-11-27 15:29] LABS: Appearance Urine Clear; Color Urine Yellow; Glucose Urine UA Negative (Negative); Leukocyte Esterase Urine Negative (Negative); Nitrite Urine Negative (Negative); Specific Gravity - Urine 1.015 (1.005-1.025); UMIC TRIGGER UACC YES; Urine Blood Small (1+) (Negative); Urine Ketones Negative (Negative); Urine Protein Negative (Neg-Trace)
[2024-11-27 15:42] LABS: Bacteria Urine None Seen (None Seen); Hyaline Casts Urine 0-2 /LPF (0-2); Squamous Epithelial Cell Urine 0-2 /HPF (0-2); WBC Urine 0-5 /HPF (0-5)
[2024-11-27 15:46] LABS: Anion Gap 16 (12-20)
[2024-11-27 16:21] LABS: Alanine Aminotransferase 80 U/L (0-40); Aspartate Amino Transferase 44 U/L (5-37); Bilirubin Direct 0.2 mg/dL (0.0-0.5); Bilirubin Total 0.6 mg/dL (0.0-1.0); Blood Urea Nitrogen 8 mg/dL (9-16); Calcium 9.9 mg/dL (8.4-10.2); Carbon Dioxide 24 mmol/L (22-29); Chloride 103 mmol/L (96-108); Creatinine Clr Calc Pharmacy 141.1; Estimated Glomerular Filt Rate > 60; Glucose Random 103 mg/dL (60-115); Lipase 13 U/L (8-78); Magnesium 1.9 mg/dL (1.6-2.6); Potassium 4.2 mmol/L (3.3-5.1); Sodium 139 mmol/L (135-145); Total Protein 8.2 g/dL (6.5-8.0)
[2024-11-27 16:36] LABS: Influenza A PCR NEGATIVE (Negative); Influenza B PCR NEGATIVE (Negative); Resp Syncy Virus RNA Qual PCR NEGATIVE (Negative); SARS COV2 PCR INHOUSE NEGATIVE (Negative)
[2024-11-27 16:43] LABS: Alkaline Phosphatase 83 U/L (39-117)
[2024-11-27 16:47] VITALS: BP 129/71; PULSE 92; RESP 18; O2SAT 99
--- OUTSIDE RECORDS SUMMARY | 2024-11-27 16:51 | XMS_ITS | Encounter Summary ---
Author Organization [facility] Address [address] [place] [address] Phone Care Team Providers Care Beveling Machine Operator Name Role Phone Kaveh Palacios MD Primary Care Provider Encounter Details Date Type Department Care Team (Late st Contact Info) Description 04/25/2015 Documentation [facility] [place] [address] [place] [address] Family Medicine, Physician [address] [place] [address] Social History Tobacco Use Types Packs/Day Years Used Date Smoking Tobacco: Never Assessed Sex and Gender Information Value Date Recorded Sex Assigned at Not on file Legal Sex Male 5:07 PM EDT Gender Identity Not on file Sexual Orientation Not on file documented as of this encounter Plan of Treatment Not on file documented as of this encounter Visit Diagnoses Not on filedocumented in this encounter Care Teams Beveling Machine Operator Relationship Specialty Start Date End Date Kaveh Palacios MD [address] [facility] [place] [address] PCP - General Pediatrics 01/21/18 11/19/23 documented as of this encounter
--- OUTSIDE RECORDS SUMMARY | 2024-11-27 16:51 | XMS_ITS | Encounter Summary ---
Author Organization [facility] Address [address] [place] [address] Phone Care Team Providers Care Metal Cabinet Finisher Name Role Phone Kaveh Palacios MD Primary Care Provider Encounter Details Date Type Department Care Team (Late st Contact Info) Description 04/25/2015 Documentation [facility] [place] [address] [place] [address] Family Medicine, Physician [address] [place] [address] Social History Tobacco Use Types [...] on filedocumented in this encounter Care Teams Metal Cabinet Finisher Relationship Specialty Start Date End Date Kaveh Palacios MD [address] [facility] [place] [address] PCP - General Pediatrics 01/21/18 11/19/23 documented as of this encounter
--- OUTSIDE RECORDS SUMMARY | 2024-11-27 16:51 | XMS_ITS | Encounter Summary ---
Author Organization [facility] Address [address] [place] [address] Phone Care Team Providers Care Lead Game Designer Name Role Phone Kaveh Palacios MD Primary Care Provider Encounter Details Date Type Department Care Team (Late st Contact Info) Description 04/25/2015 Documentation [facility] [place] Family Medicine [address] [place] [address] Family Medicine, Physician [address] [place] [address] Social History Tobacco Use Types [...] on filedocumented in this encounter Care Teams Lead Game Designer Relationship Specialty Start Date End Date Kaveh Palacios MD [address] [facility] [place] [address] PCP - General Pediatrics 01/21/18 11/19/23 documented as of this encounter
--- OUTSIDE RECORDS SUMMARY | 2024-11-27 16:51 | XMS_ITS | Encounter Summary ---
Author Organization [facility] Address [address] [place] [address] Phone Care Team Providers Care Industrial Cook Name Role Phone Kaveh Palacios MD Primary Care Provider [phone] Encounter Details Date Type Department Care Team (Late st Contact Info) Description 04/25/2015 Documentation [facility] [place] Family Medicine [address] [place] [address] Family Medicine, Physician [address] [place] [address] Social History Tobacco Use Types [...] on filedocumented in this encounter Care Teams Industrial Cook Relationship Specialty Start Date End Date Kaveh Palacios MD [address] [facility] [place] [address] PCP - General Pediatrics 01/21/18 11/19/23 documented as of this encounter
--- OUTSIDE RECORDS SUMMARY | 2024-11-27 16:51 | XMS_ITS | Clinical Summary ---
Author Organization [facility] Address [address] [place] [address] Phone Care Team Providers Care Postulant Name Role Phone Unavailable Primary Care Provider Unavailabl e Allergies No known active allergies Medications No known medications Immunizations Immunization Administration Dates Next Due DTaP 5 11/25/2007, 4,05/10/2003,03/10,01/09/2003 Hep B, ped/adol 02/08/2004,05/10/2003,2002 Hib (PRP-T) 05/09/2004, 3,03/10/2003,01/09 IPV 05/09/2014, 8,11/25/2007,05/09,03/10/2003,03/10/2003,01/09/2003 ,01/09/2003 Influenza, injectable, quadr ivalent, preservative free 04/27/2010,04/14/2009,05/12/2008,05/24 Influenza, injectable, trivalent 08/17/2012 MMR 11/25/2007,11/16/2003 Meningococcal Conj (Menactra) MCV4P 04/24/2015 Pneumococcal Conjugate 13-Valent 07/31/2003,02/24,01/09/2003 Pneumococcal Polysaccharide 05/05/2005, 3 Tdap 04/24/2015 Varicella 11/25/2007,11/16/2003 Family History Medical History Relation Name Comments Asthma Mother Cancer Paternal Grandmother Relation Name Status Comments Mother Mother: Asthma Paternal Grandfather Paterna l grandfather: heart disease, had quadruple bypass Paternal Grandmother Sister Sister: idiopat hic paralysis Social History Tobacco Use Types Packs/Day Years Used Date Smoking Tobacco: Never Smokeless Tobacco: Never Tobacco Cessation:Counseling Given: Yes Comments:Never smoker Alcohol Use Standard Drinks/Week Comments Never 0 (1 standard drink = 0.6 oz pur e alcohol) Hunger/Food Answer Date Recorded In the last 12 months, did y ou or your family ever eat less than you felt you should because there wasn't enough money for food? No 03/07/2019 Stable Housing Answer Date Recorded Are you worried that in the next 2 months you may not have stable housing? No 03/07/2019 Transportation Concerns Answer Date Rec orded In the last 12 months, have you or your family ever had to go without healthcare because you didn't have a way to get there? No 03/07/2019 Hazards in Home Answer Date Recorded Think about the place you li ve. Do you have problems with any of the following? Pests (mice or roaches), mold, no/not working smoke detectors, water leaks, no window guards. No 2018 Financing Utilities Answer Date Recorde d In the last 12 months, has t he electric, gas, oil, or water company threatened to shut off your services in your home? No 03/07/2019 Safety at Home Answer Date Recorded Are you or your family worried about feeling saf e in your home? No 03/07/2019 Outside Support Answer Date Recorded Do you feel that you need mo re support from other people or programs to help you care for yourself or your family? No 03/07/2019 Understanding Health Concerns Answer Da te Recorded Do you need help understandi ng your or your child's healthcare needs (diagnosis, medications, plan, etc.)? No 03/07/2019 Financing Health Concerns Answer Date R ecorded In the last 12 months, was t here a time when your child needed to see a doctor or get medications or supplies but could not because of cost? No 03/07/2019 Missing School or Work Answer Date Robert rded Did you or your child miss s chool or work because of a health problem that could have been avoided? No 03/07/2019 Sex and Gender Information Value Date Recorded Sex Assigned at Not on file Legal Sex Male 5:07 PM EDT Gender Identity Not on file Sexual Orientation Not on file Last Filed Vital Signs Vital Sign Reading Time Taken Comments Blood Pressure 113/74 03/07/2019 3:13 PM EDT Pulse 63 03/07/2019 3:13 PM EDT Temperature 36.6 ??C (97.9 ??F) 02/27/2023 2:01 PM E DT Respiratory Rate - - Oxygen Saturation - - Inhaled Oxygen Concentration - - Weight 74.8 kg (165 lb) 02/27/2023 2:01 PM EDT Height 162.6 cm (5' 4 ) 03/07/2019 3:13 PM EDT Body Mass Index - - Plan of Treatment Health Maintenance Due Date Last Done Comments HPV Vaccines (1 - Male 3-dose series) 2017 Men B Vaccine (1 of 2 - Standard) 2018 Influenza Vaccines (#1) 2024 08/17/19 13, 04/27/2010, 04/14/2009, Additional history exists COVID-19 Vaccine ( - 2023- season) 2024 DTaP,Tdap,and Td Vaccines (7 - Td or Tdap) 04/24/2025 04/24/2015, 11/25/2007, 05/09/2004, Additional history exists Hepatitis B Vaccines Completed 02/08/2004, 05/10/2003, 2002 Pneumococcal Vaccine Aged Out 05/05/2005, 07/31/2003, 05/10/2003, Additional history exists No longer eligible based on patient's age to complete this topic MMR Vaccines Completed 11/25/2007, 11/16/2003 Varicella Vaccines Completed 11/25/2007, 11/16/2003 HIB Vaccines Completed 05/09/2014, 04/26, 05/10/2003, Additional history exists IPV Vaccines Completed 05/09/2014, 07/2007, 11/25/2007, Additional history exists Meningococcal Vaccine Aged Out 04/24/2015 No le riki eligible based on patient's age to complete this topic Hepatitis A Vaccines Aged Out No long er eligible based on patient's age to complete this topic Insurance [address] [address]
--- OUTSIDE RECORDS SUMMARY | 2024-11-27 16:51 | XMS_ITS | Encounter Summary ---
Author Organization [facility] Address [address] [place] [address] Phone Care Team Providers Care Timber Mill Worker Name Role Phone Kaveh Palacios MD Primary Care Provider Encounter Details Date Type Department Care Team (Late st Contact Info) Description 04/25/2015 Documentation [facility] [place] [address] [place] [address] Family Medicine, Physician [address] [place] [address] Social History Tobacco Use Types [...] on filedocumented in this encounter Care Teams Timber Mill Worker Relationship Specialty Start Date End Date Kaveh Palacios MD [address] [place] [address] PCP - General Pediatrics 01/21/18 11/19/23 documented as of this encounter
--- OUTSIDE RECORDS SUMMARY | 2024-11-27 16:51 | XMS_ITS | Encounter Summary ---
Author Organization [facility] Address [address] [place] [address] Phone Care Team Providers Care Professional Wrestler Name Role Phone Kaveh Palacios MD Primary Care Provider Encounter Details Date Type Department Care Team (Late st Contact Info) Description 04/25/2015 Documentation [facility] [place] Family Medicine [address] [place] [address] Family Medicine, Physician [address] [place] [address] Social History Tobacco Use Types [...] on filedocumented in this encounter Care Teams Professional Wrestler Relationship Specialty Start Date End Date Kaveh Palacios MD [address] [facility] [place] [address] PCP - General Pediatrics 01/21/18 11/19/23 documented as of this encounter
--- OUTSIDE RECORDS SUMMARY | 2024-11-27 16:51 | XMS_ITS | Encounter Summary ---
Author Organization [facility] Address [address] [place] [address] Phone Care Team Providers Care Youth Associate Name Role Phone Kaveh Palacios MD Primary Care Provider [phone] Encounter Details Date Type Department Care Team (Late st Contact Info) Description 03/12/2017 Conversion Encounter [facility] [place] [address] [place] [address] Social History Tobacco Use Types Packs/Day Years Used Date Smoking Tobacco: Never Comments:Never smoker Sex and Gender Information Value Date Recorded Sex Assigned at Not on file Legal Sex Male 5:07 PM EDT Gender Identity Not on file Sexual Orientation Not on file documented as of this encounter Plan of Treatment Not on file documented as of this encounter Visit Diagnoses Not on filedocumented in this encounter Care Teams Youth Associate Relationship Specialty Start Date End Date Kaveh Palacios MD [address] [place] [address] PCP - General Pediatrics 01/21/18 11/19/23 documented as of this encounter
--- OUTSIDE RECORDS SUMMARY | 2024-11-27 16:51 | XMS_ITS | Encounter Summary ---
Author Organization [facility] Address [address] [place] [address] Phone Care Team Providers Care Manager Organizational Name Role Phone Kaveh Palacios MD Primary Care Provider [phone] Encounter Details Date Type Department Care Team (Late st Contact Info) Description 04/25/2015 Documentation [facility] [place] Family Medicine [address] [place] [address] Family Medicine, Physician [address] [place] [address] Social History Tobacco Use Types [...] on filedocumented in this encounter Care Teams Manager Organizational Relationship Specialty Start Date End Date Kaveh Palacios MD 150 [place] [address] PCP - General Pediatrics 01/21/18 11/19/23 documented as of this encounter
--- OUTSIDE RECORDS SUMMARY | 2024-11-27 16:51 | XMS_ITS | Encounter Summary ---
Author Organization [facility] Address [address] [place] [address] Phone Care Team Providers Care Software Quality Assurance Specialist Name Role Phone Kaveh Palacios MD Primary Care Provider Encounter Details Date Type Department Care Team (Late st Contact Info) Description 10/11/2010 Conversion Encounter [facility] [address] [place] [address] Dr [place] [address] Social History Tobacco Use Types Packs/Day Years [...] on filedocumented in this encounter Care Teams Software Quality Assurance Specialist Relationship Specialty Start Date End Date Kaveh Palacios MD [address] [place] [address] NAOMI Powell [address] PCP - General Pediatrics 01/21/18 11/19/23 documented as of this encounter
--- OUTSIDE RECORDS SUMMARY | 2024-11-27 16:51 | XMS_ITS | Encounter Summary ---
Author Organization [facility] Address [address] [place] [address] Phone Care Team Providers Care Squad Boss Name Role Phone Kaveh Palacios MD Primary Care Provider [phone] Encounter Details Date Type Department Care Team (Late st Contact Info) Description 04/25/2015 Documentation [facility] [place] [address] [place] [address] Family Medicine, Physician [address] [place] [address] Social History Tobacco Use Types [...] on filedocumented in this encounter Care Teams Squad Boss Relationship Specialty Start Date End Date Kaveh Palacios MD 150 [facility] [place] [address] PCP - General Pediatrics 01/21/18 11/19/23 documented as of this encounter
--- OUTSIDE RECORDS SUMMARY | 2024-11-27 16:51 | XMS_ITS | Encounter Summary ---
Author Organization [facility] Address [address] [place] [address] Phone Care Team Providers Care Pricing Supervisor Name Role Phone Kaveh Palacios MD Primary Care Provider Encounter Details Date Type Department Care Team (Late st Contact Info) Description 04/25/2015 Documentation [facility] [place] [address] [place] [address] Family Medicine, Physician [address] [place] [address] Social History Tobacco Use Types [...] on filedocumented in this encounter Care Teams Pricing Supervisor Relationship Specialty Start Date End Date Kaveh Palacios MD 150 [facility] [place] [address] PCP - General Pediatrics 01/21/18 11/19/23 documented as of this encounter
--- OUTSIDE RECORDS SUMMARY | 2024-11-27 16:51 | XMS_ITS | Encounter Summary ---
Author Organization [facility] Address [address] [place] [address] Phone Care Team Providers Care Inspector Tool Name Role Phone Kaveh Palacios MD Primary Care Provider [phone] Encounter Details Date Type Department Care Team (Late st Contact Info) Description 04/25/2015 Documentation [facility] [place] Family Medicine [address] [place] [address] Family Medicine, Physician [address] [place] [address] Social History Tobacco Use Types [...] on filedocumented in this encounter Care Teams Inspector Tool Relationship Specialty Start Date End Date Kaveh Palacios MD 150 [facility] [address] PCP - General Pediatrics 01/21/18 11/19/23 documented as of this encounter
--- OUTSIDE RECORDS SUMMARY | 2024-11-27 16:51 | XMS_ITS | Encounter Summary ---
Author Organization [facility] Address [address] [place] [address] Phone Care Team Providers Care Claims Service Adjustor Name Role Phone Kaveh Palacios MD Primary Care Provider Encounter Details Date Type Department Care Team (Late st Contact Info) Description 04/30/2016 Documentation [facility] [place] [address] [place] [address] Family Medicine, Physician [address] [place] [address] Social History Tobacco Use Types [...] on filedocumented in this encounter Care Teams Claims Service Adjustor Relationship Specialty Start Date End Date Kaveh Palacios MD [address] [place] [address] [place] [address] PCP - General Pediatrics 01/21/18 11/19/23 documented as of this encounter
--- OUTSIDE RECORDS SUMMARY | 2024-11-27 16:51 | XMS_ITS | Encounter Summary ---
Author Organization [facility] Address [address] [place] [address] Phone Care Team Providers Care Implementation Consultant Name Role Phone Kaveh Palacios MD Primary Care Provider [phone] Encounter Details Date Type Department Care Team (Late st Contact Info) Description 04/25/2015 Documentation [facility] [place] [address] [place] [address] Family Medicine, Physician [address] [place] [address] Social History Tobacco Use Types [...] on filedocumented in this encounter Care Teams Implementation Consultant Relationship Specialty Start Date End Date Kaveh Palacios MD 150 [place] [address] PCP - General Pediatrics 01/21/18 11/19/23 documented as of this encounter
--- OUTSIDE RECORDS SUMMARY | 2024-11-27 16:51 | XMS_ITS | Encounter Summary ---
Author Organization [facility] Address [address] [place] [address] Phone Care Team Providers Care Engineering Instructor Name Role Phone Kaveh Palacios MD Primary Care Provider Encounter Details Date Type Department Care Team (Late st Contact Info) Description 04/25/2015 Documentation [facility] [place] [address] [place] [address] Family Medicine, Physician [address] [place] [address] Social History Tobacco Use Types [...] on filedocumented in this encounter Care Teams Engineering Instructor Relationship Specialty Start Date End Date Kaveh Palacios MD 150 [place] [address] PCP - General Pediatrics 01/21/18 11/19/23 documented as of this encounter
--- OUTSIDE RECORDS SUMMARY | 2024-11-27 16:51 | XMS_ITS | Encounter Summary ---
Author Organization [facility] Address [address] [place] [address] Phone Care Team Providers Care Automotive Paint Technician Name Role Phone Kaveh Palacios MD Primary Care Provider [phone] Encounter Details Date Type Department Care Team (Late st Contact Info) Description 04/25/2015 Documentation [facility] [place] Family Medicine [address] [place] [address] Family Medicine, Physician [address] [place] [address] Social History Tobacco Use Types [...] on filedocumented in this encounter Care Teams Automotive Paint Technician Relationship Specialty Start Date End Date Kaveh Palacios MD 150 [facility] [place] [address] PCP - General Pediatrics 01/21/18 11/19/23 documented as of this encounter
--- OUTSIDE RECORDS SUMMARY | 2024-11-27 16:51 | XMS_ITS | Encounter Summary ---
Author Organization [facility] Address [address] [place] [address] Phone Care Team Providers Care Trial Justice Name Role Phone Kaveh Palacios MD Primary Care Provider Encounter Details Date Type Department Care Team (Late st Contact Info) Description 04/25/2015 Documentation [facility] [place] [address] [place] [address] Family Medicine, Physician [address] [place] [address] Social History Tobacco Use Types [...] on filedocumented in this encounter Care Teams Trial Justice Relationship Specialty Start Date End Date Kaveh Palacios MD 150 [facility] [place] [address] PCP - General Pediatrics 01/21/18 11/19/23 documented as of this encounter
--- OUTSIDE RECORDS SUMMARY | 2024-11-27 16:51 | XMS_ITS | Encounter Summary ---
Author Organization [facility] Address [address] [place] [address] Phone Care Team Providers Care Corporation Pilot Name Role Phone Kaveh Palacios MD Primary Care Provider Encounter Details Date Type Department Care Team (Late st Contact Info) Description 04/25/2015 Documentation [facility] [place] [address] [place] [address] Family Medicine, Physician [address] [place] [address] Social History Tobacco Use Types [...] on filedocumented in this encounter Care Teams Corporation Pilot Relationship Specialty Start Date End Date Kaveh Palacios MD 150 [facility] [place] [address] PCP - General Pediatrics 01/21/18 11/19/23 documented as of this encounter
--- OUTSIDE RECORDS SUMMARY | 2024-11-27 16:51 | XMS_ITS | Encounter Summary ---
Author Organization [facility] Address [address] [place] [address] Phone Care Team Providers Care Warehouse Packaging Supervisor Name Role Phone Kaveh Palacios MD Primary Care Provider Encounter Details Date Type Department Care Team (Late st Contact Info) Description 04/24/2015 Documentation [facility] [place] [address] [place] [address] Family Medicine, Physician [address] [place] [address] Social History Tobacco Use Types [...] on filedocumented in this encounter Care Teams Warehouse Packaging Supervisor Relationship Specialty Start Date End Date Kaveh Palacios MD 150 [place] [address] PCP - General Pediatrics 01/21/18 11/19/23 documented as of this encounter
--- OUTSIDE RECORDS SUMMARY | 2024-11-27 16:51 | XMS_ITS | Encounter Summary ---
Author Organization [facility] Address [address] [place] [address] Phone Care Team Providers Care Manager Camp Name Role Phone Kaveh Palacios MD Primary Care Provider Encounter Details Date Type Department Care Team (Late st Contact Info) Description 04/30/2016 Documentation [facility] [place] [address] [place] [address] Family Medicine, Physician [address] [place] [address] Social History Tobacco Use Types [...] filedocumented in this encounter Care Teams Manager Camp Relationship Specialty Start Date End Date Kaveh Palacios MD [address] [place] [address] [place] [address] PCP - General Pediatrics 01/21/18 11/19/23 documented as of this encounter
--- OUTSIDE RECORDS SUMMARY | 2024-11-27 16:51 | XMS_ITS | Encounter Summary ---
Author Organization [facility] Address [address] [place] [address] Phone Care Team Providers Care Flume Worker Name Role Phone Kaveh Palacios MD Primary Care Provider Encounter Details Date Type Department Care Team (Late st Contact Info) Description 04/25/2015 Documentation [facility] [place] [address] [place] [address] Family Medicine, Physician [address] [place] [address] Social History Tobacco Use Types [...] on filedocumented in this encounter Care Teams Flume Worker Relationship Specialty Start Date End Date Kaveh Palacios MD 150 [facility] [place] [address] PCP - General Pediatrics 01/21/18 11/19/23 documented as of this encounter
--- OUTSIDE RECORDS SUMMARY | 2024-11-27 16:51 | XMS_ITS | Encounter Summary ---
Author Organization [facility] Address [address] [place] [address] Phone Care Team Providers Care Nail Cutter Name Role Phone Kaveh Palacios MD Primary Care Provider [phone] Encounter Details Date Type Department Care Team (Late st Contact Info) Description 04/25/2015 Documentation [facility] [place] [address] [place] [address] Family Medicine, Physician [address] [place] [address] Social History Tobacco Use Types [...] on filedocumented in this encounter Care Teams Nail Cutter Relationship Specialty Start Date End Date Kaveh Palacios MD 150 [place] [address] PCP - General Pediatrics 01/21/18 11/19/23 documented as of this encounter
[2024-11-27 17:13] LABS: OBS Int Ctl Valid YES; OBS1 POSITIVE (NEGATIVE)
[2024-11-27] MEDS: iohexoL 350 MG/ML 100 ML INFUS..BTL IV (17:30)
[2024-11-27 17:58] LABS: CDiff Gene PCR NEGATIVE (Negative)
[2024-11-27 19:25] VITALS: BP 129/71; PULSE 92; RESP 18; TEMP 37; O2SAT 99
== END 2024-11-27 19:27 | disposition home or self-care (01) ==
PROVIDERS: Physician Assistant Medical; Emergency Provider Emergency Medicine; PCP Internal Medicine
DX: K52.9 Noninfective gastroenteritis and colitis, unspecified (principal); R10.30 Lower abdominal pain, unspecified; Z03.818 Encounter for observation for suspected exposure to other biological agents ruled out; Z79.899 Other long term (current) drug therapy
CPT/HCPCS: 0241U; 36415; 74177; 80048; 80076; 81001; 82272; 83690; 83735; 85025; 87493; 87507; 99284; Q9967

== ENCOUNTER → 2024-11-27 16:47 | Outpatient (BNV) | payer OTHER, SELFPAY | PROVIDERS: Emergency Provider Emergency Medicine; PCP Internal Medicine; Visit Provider Radiology Diagnostic Radiology | DX: R10.30 Lower abdominal pain, unspecified (principal); K92.2 Gastrointestinal hemorrhage, unspecified | CPT/HCPCS: 74177 ==

== ENCOUNTER 2025-05-19 01:31 | Emergency (ER) | payer OTHER, SELFPAY ==
--- NOTE | ~2025-05-19 | US_ITS ---
CLINICAL HISTORY: L Testicular Pain; Swelling; R o Torsion --- Additional Notes or Special Instructions: Called in @ 0235, Here @ 0306 US scrotum with Doppler Comparison: None provided Findings: Right testicle is normal in size and echogenicity measuring 4.2 x 2.3 x 2.7 cm. There is normal color flow and arterial/venous spectral tracing in the right testicle. There is an incidental right epididymal head cyst measuring up to 7 mm. Right epididymis appears otherwise normal. There is no right hydrocele or varicocele. Left testicle is normal in size and echogenicity measuring 4.4 x 2.1 x 3 cm. There is normal color flow and arterial/venous spectral tracing in the left testicle. There is an incidental tiny left appendix epididymis. The left epididymis appears otherwise normal. There is no left hydrocele or varicocele. IMPRESSION: No acute findings. This document has been electronically signed by: Jose Jade MD on 05/19/2025 04:33:15
[2025-05-19 01:36] VITALS: BP 125/71; PULSE 104; RESP 14; TEMP 36.8; O2SAT 98; BMI 26.6
--- OUTSIDE RECORDS SUMMARY | 2025-05-19 02:00 | XMS_ITS | Encounter Summary ---
Author Organization [facility] Address [address] [place] [address] Phone Care Team Providers Care Braille Teacher Name Role Phone Kaveh Palacios MD Primary Care Provider [phone] Encounter Details Date Type Department Care Team (Late st Contact Info) Description 04/25/2015 Documentation [facility] [place] [address] [place] [address] Family Medicine, Physician [address] [place] [address] Social History Tobacco Use Types [...] on filedocumented in this encounter Care Teams Braille Teacher Relationship Specialty Start Date End Date Kaveh Palacios MD 150 [facility] [place] [address] PCP - General Pediatrics 01/21/18 11/19/23 documented as of this encounter
--- OUTSIDE RECORDS SUMMARY | 2025-05-19 02:00 | XMS_ITS | Encounter Summary ---
Author Organization [facility] Address [address] [place] [address] Phone Care Team Providers Care Family Living Educator Name Role Phone Kaveh Palacios MD Primary Care Provider Encounter Details Date Type Department Care Team (Late st Contact Info) Description 04/25/2015 Documentation [facility] [place] [address] [place] [address] Family Medicine, Physician [address] [place] [address] Social History Tobacco Use Types [...] on filedocumented in this encounter Care Teams Family Living Educator Relationship Specialty Start Date End Date Kaveh Palacios MD 150 [facility] [place] [address] PCP - General Pediatrics 01/21/18 11/19/23 documented as of this encounter
--- OUTSIDE RECORDS SUMMARY | 2025-05-19 02:00 | XMS_ITS | Encounter Summary ---
Author Organization [facility] Address [address] [place] [address] Phone Care Team Providers Care Catalytic Converter Operator Helper Name Role Phone Kaveh Palacios MD Primary Care Provider Encounter Details Date Type Department Care Team (Late st Contact Info) Description 04/25/[address] [facility] [place] Family Medicine [address] [place] [address] Family Medicine, Physician [address] [place] [address] Social History Tobacco Use Types [...] on filedocumented in this encounter Care Teams Catalytic Converter Operator Helper Relationship Specialty Start Date End Date Kaveh Palacios MD 150 [place] [address] PCP - General Pediatrics 01/21/18 11/19/23 documented as of this encounter
--- OUTSIDE RECORDS SUMMARY | 2025-05-19 02:00 | XMS_ITS | Encounter Summary ---
Author Organization [facility] Address [address] [place] [address] Phone Care Team Providers Care Credit Relationship Manager Name Role Phone Kaveh Palacios MD Primary Care Provider Encounter Details Date Type Department Care Team (Late st Contact Info) Description 04/25/2015 Documentation [facility] [place] Family Medicine [address] [place] [address] Family Medicine, Physician [address] [place] [address] Social History Tobacco Use Types [...] on filedocumented in this encounter Care Teams Credit Relationship Manager Relationship Specialty Start Date End Date Kaveh Palacios MD 150 [facility] [place] [address] PCP - General Pediatrics 01/21/18 11/19/23 documented as of this encounter
--- OUTSIDE RECORDS SUMMARY | 2025-05-19 02:00 | XMS_ITS | Encounter Summary ---
Author Organization [facility] Address [address] [place] [address] Phone Care Team Providers Care Golf Course Assistant Name Role Phone Kaveh Palacios MD Primary Care Provider Encounter Details Date Type Department Care Team (Late st Contact Info) Description 04/30/2016 Documentation [facility] [place] Family Medicine [address] [place] [address] Family Medicine, Physician [address] [place] [address] Social History Tobacco Use Types [...] on filedocumented in this encounter Care Teams Golf Course Assistant Relationship Specialty Start Date End Date Kaveh Palacios MD [address] [place] [address] [place] [address] PCP - General Pediatrics 01/21/18 11/19/23 documented as of this encounter
--- OUTSIDE RECORDS SUMMARY | 2025-05-19 02:00 | XMS_ITS | Encounter Summary ---
Author Organization [facility] Address [address] [place] [address] Phone Care Team Providers Care Social Worker School Name Role Phone Kaveh Palacios MD Primary Care Provider Encounter Details Date Type Department Care Team (Late st Contact Info) Description 04/25/2015 Documentation [facility] [place] Family Medicine [address] [place] [address] Family Medicine, Physician [address] [place] [address] Social History Tobacco Use Types [...] on filedocumented in this encounter Care Teams Social Worker School Relationship Specialty Start Date End Date Kaveh Palacios MD 150 [facility] [address] PCP - General Pediatrics 01/21/18 11/19/23 documented as of this encounter
--- OUTSIDE RECORDS SUMMARY | 2025-05-19 02:00 | XMS_ITS | Encounter Summary ---
Author Organization [facility] Address [address] [place] [address] Phone Care Team Providers Care Product Demonstrator Name Role Phone Kaveh Palacios MD Primary Care Provider [phone] Encounter Details Date Type Department Care Team (Late st Contact Info) Description 04/24/2015 Documentation [facility] [place] [address] [place] [address] Family Medicine, Physician [address] [place] [address] Social History Tobacco Use Types [...] on filedocumented in this encounter Care Teams Product Demonstrator Relationship Specialty Start Date End Date Kaveh Palacios MD 150 [facility] [place] [address] PCP - General Pediatrics 01/21/18 11/19/23 documented as of this encounter
--- OUTSIDE RECORDS SUMMARY | 2025-05-19 02:00 | XMS_ITS | Encounter Summary ---
Author Organization [facility] Address [address] [place] [address] Phone Care Team Providers Care Webfed Offset Press Operator Name Role Phone Kaveh Palacios MD Primary Care Provider Encounter Details Date Type Department Care Team (Late st Contact Info) Description 03/12/2017 Conversion Encounter [facility] [place] [address] [place] [address] Social History Tobacco Use Types Packs/Day Years [...] on filedocumented in this encounter Care Teams Webfed Offset Press Operator Relationship Specialty Start Date End Date Kaveh Palacios MD 150 [place] [address] PCP - General Pediatrics 01/21/18 11/19/23 documented as of this encounter
--- OUTSIDE RECORDS SUMMARY | 2025-05-19 02:00 | XMS_ITS | Encounter Summary ---
Author Organization [facility] Address [address] [place] [address] Phone Care Team Providers Care Supervisor Bit And Shank Department Name Role Phone Kaveh Palacios MD Primary Care Provider [phone] Encounter Details Date Type Department Care Team (Late st Contact Info) Description 04/25/2015 Documentation [facility] [place] [address] [place] [address] Family Medicine, Physician [address] [place] [address] Social History Tobacco Use Types [...] on filedocumented in this encounter Care Teams Supervisor Bit And Shank Department Relationship Specialty Start Date End Date Kaveh Palacios MD 150 [facility] [place] [address] PCP - General Pediatrics 01/21/18 11/19/23 documented as of this encounter
--- OUTSIDE RECORDS SUMMARY | 2025-05-19 02:00 | XMS_ITS | Encounter Summary ---
Author Organization [facility] Address [address] [place] [address] Phone Care Team Providers Care Chief Radiology Name Role Phone Kaveh Palacios MD Primary Care Provider [phone] Encounter Details Date Type Department Care Team (Late st Contact Info) Description 04/25/2015 Documentation [facility] [place] Family Medicine [address] [place] [address] Family Medicine, Physician [address] [place] [address] Social History Tobacco Use Types [...] on filedocumented in this encounter Care Teams Chief Radiology Relationship Specialty Start Date End Date Kaveh Palacios MD 150 [facility] [address] PCP - General Pediatrics 01/21/18 11/19/23 documented as of this encounter
--- OUTSIDE RECORDS SUMMARY | 2025-05-19 02:00 | XMS_ITS | Encounter Summary ---
Author Organization [facility] Address [address] [place] [address] Phone Care Team Providers Care Manager Package Name Role Phone Kaveh Palacios MD Primary Care Provider [phone] Encounter Details Date Type Department Care Team (Late st Contact Info) Description 04/25/2015 Documentation [facility] [place] [address] [place] [address] Family Medicine, Physician [address] [place] [address] Social History Tobacco Use Types [...] filedocumented in this encounter Care Teams Manager Package Relationship Specialty Start Date End Date Kaveh Palacios MD 150 [place] [address] PCP - General Pediatrics 01/21/18 11/19/23 documented as of this encounter
--- OUTSIDE RECORDS SUMMARY | 2025-05-19 02:00 | XMS_ITS | Encounter Summary ---
Author Organization [facility] Address [address] [place] [address] Phone Care Team Providers Care Internal Medicine Doctor Name Role Phone Kaveh Palacios MD Primary Care Provider Encounter Details Date Type Department Care Team (Late st Contact Info) Description 10/11/2010 Conversion Encounter [facility] [address] [place] [address] Dr [place] [address] Social History Tobacco Use Types Packs/Day Years [...] on filedocumented in this encounter Care Teams Internal Medicine Doctor Relationship Specialty Start Date End Date Kaveh Palacios MD [address] [place] [address] NAOM[place] [address] PCP - General Pediatrics 01/21/18 11/19/23 documented as of this encounter
--- OUTSIDE RECORDS SUMMARY | 2025-05-19 02:00 | XMS_ITS | Encounter Summary ---
Author Organization [facility] Address [address] [place] [address] Phone Care Team Providers Care Professional Housing Consultant Name Role Phone Kaveh Palacios MD Primary Care Provider Encounter Details Date Type Department Care Team (Late st Contact Info) Description 04/25/2015 [place] [facility] [place] [address] [place] [address] Family Medicine, Physician [address] [place] [address] Social History Tobacco Use Types [...] filedocumented in this encounter Care Teams Professional Housing Consultant Relationship Specialty Start Date End Date Kaveh Palacios MD 150 [facility] [place] [address] PCP - General Pediatrics 01/21/18 11/19/23 documented as of this encounter
--- OUTSIDE RECORDS SUMMARY | 2025-05-19 02:00 | XMS_ITS | Clinical Summary ---
Author Organization [facility] Address [address] [place] [address] Phone Care Team Providers Care Marbleizer Name Role Phone Unavailable Primary Care Provider [...] 63 03/07/2019 3:13 PM EDT Temperature 36.6 C (97.9 F) 02/27/2023 2:01 PM EDT Respiratory Rate - - Oxygen Saturation - [...] 2 - Standard) 2018 Influenza Vaccines (#1) 2025 08/17/19 13, 04/27/2010, 04/14/2009, Additional history exists COVID-19 Vaccine ( - 2024- season) 2025 DTaP,Tdap,and Td Vaccines (7 - Td or [...] patient's age to complete this topic Insurance [facility]
--- OUTSIDE RECORDS SUMMARY | 2025-05-19 02:00 | XMS_ITS | Encounter Summary ---
Author Organization [facility] Address [address] [place] [address] Phone Care Team Providers Care Outer Diameter Technician Name Role Phone Kaveh Palacios MD Primary Care Provider Encounter Details Date Type Department Care Team (Late st Contact Info) Description 04/25/[address] [facility] [place] Family Medicine [address] [place] [address] Family Medicine, Physician [address] [place] [address] Social History Tobacco Use Types [...] on filedocumented in this encounter Care Teams Outer Diameter Technician Relationship Specialty Start Date End Date Kaveh Palacios MD [address] [facility] [place] [place] [address] PCP - General Pediatrics 01/21/18 11/19/23 documented as of this encounter
--- OUTSIDE RECORDS SUMMARY | 2025-05-19 02:00 | XMS_ITS | Encounter Summary ---
Author Organization [facility] Address [address] [place] [address] Phone Care Team Providers Care Janitor Helper Name Role Phone Kaveh Palacios MD Primary Care Provider Encounter Details Date Type Department Care Team (Late st Contact Info) Description 04/25/2015 [place] [facility] [place] [address] [place] [address] Family Medicine, Physician [address] [place] [address] Social History Tobacco Use Types [...] on filedocumented in this encounter Care Teams Janitor Helper Relationship Specialty Start Date End Date Kaveh Palacios MD 150 [place] [address] PCP - General Pediatrics 01/21/18 11/19/23 documented as of this encounter
--- OUTSIDE RECORDS SUMMARY | 2025-05-19 02:00 | XMS_ITS | Encounter Summary ---
Author Organization [facility] Address [address] [place] [address] Phone Care Team Providers Care Production Supply Equipment Tender Name Role Phone Kaveh Palacios MD Primary Care Provider Encounter Details Date Type Department Care Team (Late st Contact Info) Description 04/25/2015 Documentation [facility] [place] Family Medicine [address] [place] [address] Family Medicine, Physician [address] [place] [address] Social History Tobacco Use Types [...] on filedocumented in this encounter Care Teams Production Supply Equipment Tender Relationship Specialty Start Date End Date Kaveh Palacios MD 150 [facility] [place] [address] PCP - General Pediatrics 01/21/18 11/19/23 documented as of this encounter
--- OUTSIDE RECORDS SUMMARY | 2025-05-19 02:00 | XMS_ITS | Encounter Summary ---
Author Organization [facility] Address [address] [place] [address] Phone Care Team Providers Care Vegetable Worker Name Role Phone Kaveh Palacios MD Primary Care Provider [phone] Encounter Details Date Type Department Care Team (Late st Contact Info) Description 04/30/2016 Documentation [facility] [place] Medicine [address] [place] [address] Family Medicine, Physician [address] [place] [address] Social History Tobacco Use Types [...] on filedocumented in this encounter Care Teams Vegetable Worker Relationship Specialty Start Date End Date Kaveh Palacios MD [address] [place] [address] [place] [address] PCP - General Pediatrics 01/21/18 11/19/23 documented as of this encounter
--- OUTSIDE RECORDS SUMMARY | 2025-05-19 02:00 | XMS_ITS | Encounter Summary ---
Author Organization [facility] Address [address] [place] [address] Phone Care Team Providers Care Spool Sorter Name Role Phone Kaveh Palacios MD Primary Care Provider [phone] Encounter Details Date Type Department Care Team (Late st Contact Info) Description 04/25/2015 Documentation [facility] [place] [address] [place] [address] Family Medicine, Physician [address] [place] [address] Social History Tobacco Use Types [...] on filedocumented in this encounter Care Teams Spool Sorter Relationship Specialty Start Date End Date Kaveh Palacios MD 150 [facility] [place] [address] PCP - General Pediatrics 01/21/18 11/19/23 documented as of this encounter
--- OUTSIDE RECORDS SUMMARY | 2025-05-19 02:00 | XMS_ITS | Encounter Summary ---
Author Organization [facility] Address [address] [place] [address] Phone Care Team Providers Care Sandstone Splitter Name Role Phone Kaveh Palacios MD Primary Care Provider [phone] Encounter Details Date Type Department Care Team (Late st Contact Info) Description 04/25/2015 Documentation [facility] [place] Family Medicine [address] [place] [address] Family Medicine, Physician [address] [place] [address] Social History Tobacco Use Types [...] on filedocumented in this encounter Care Teams Sandstone Splitter Relationship Specialty Start Date End Date Kaveh Palacios MD 150 [place] [address] PCP - General Pediatrics 01/21/18 11/19/23 documented as of this encounter
--- OUTSIDE RECORDS SUMMARY | 2025-05-19 02:00 | XMS_ITS | Encounter Summary ---
Author Organization [facility] Address [address] [place] [address] Phone Care Team Providers Care Product Support Engineer Name Role Phone Kaveh Palacios MD Primary Care Provider Encounter Details Date Type Department Care Team (Late st Contact Info) Description 04/25/2015 Documentation [facility] [place] Family Medicine [address] [place] [address] Family Medicine, Physician [address] [place] [address] Social History Tobacco Use Types [...] filedocumented in this encounter Care Teams Product Support Engineer Relationship Specialty Start Date End Date Kaveh Palacios MD 150 [facility] [place] [address] PCP - General Pediatrics 01/21/18 11/19/23 documented as of this encounter
--- OUTSIDE RECORDS SUMMARY | 2025-05-19 02:00 | XMS_ITS | Encounter Summary ---
Author Organization [facility] Address [address] [place] [address] Phone Care Team Providers Care Funeral Workers Name Role Phone Kaveh Palacios MD Primary Care Provider [phone] Encounter Details Date Type Department Care Team (Late st Contact Info) Description 04/25/2015 [place] [facility] [place] [address] [place] [address] Family Medicine, Physician [address] [place] [address] Social History Tobacco Use Types [...] on filedocumented in this encounter Care Teams Funeral Workers Relationship Specialty Start Date End Date Kaveh Palacios MD 150 [facility] [place] [address] PCP - General Pediatrics 01/21/18 11/19/23 documented as of this encounter
--- OUTSIDE RECORDS SUMMARY | 2025-05-19 02:00 | XMS_ITS | Encounter Summary ---
Author Organization [facility] Address [address] [place] [address] Phone Care Team Providers Care Curriculum Coach Name Role Phone Kaveh Palacios MD Primary Care Provider [phone] Encounter Details Date Type Department Care Team (Late st Contact Info) Description 04/25/2015 Documentation [facility] [place] [address] [place] [address] Family Medicine, Physician [address] [place] [address] Social History Tobacco Use Types [...] on filedocumented in this encounter Care Teams Curriculum Coach Relationship Specialty Start Date End Date Kaveh Palacios MD 150 [facility] [place] [address] PCP - General Pediatrics 01/21/18 11/19/23 documented as of this encounter
--- NOTE | 2025-05-19 02:32 | ED.MALEGU ---
HPI - Male Genitourinary General Chief complaint: Urogenital-Male Stated complaint: Groin pain, abd pain Time Seen by Provider: 05/19/25 02:32 Source: patient Mode of arrival: ambulatory Limitations: no limitations History of Present Illness ED Provider: Arpit RUSHING HPI Narrative: The patient is a 24-year-old male presenting to the ED reporting for the past 3 days he has been experiencing left-sided testicular pain radiating to his groin and low back, pain increased tonight around 23:00 prompting him to notify his mother who brought him to the ED for evaluation. The patient reports the left testicle appears to be riding higher than the right. The patient denies associated fever/chills, nausea, vomiting, dysuria, hematuria, or recent injury. The patient denies any sexual activity, has never been sexually active. The patient denies penile lesions or urethral discharge. Related Data Previous Rx's ?Medication ?Instructions ?Recorded naproxen 500 mg tablet 500 mg PO BID PRN pain 7 days #14 02/10/23 tabs amoxicillin 875 mg-potassium 1 tab PO BID #14 tabs 11/27/24 clavulanate 125 mg tablet Allergies Allergy/AdvReac Type Severity Reaction Status Date / Time No Known Allergies Allergy Verified 05/19/25 01:39 Review of Systems Review of Systems: Yes all other systems are reviewed and are negative [facility] Past Medical History Surgical History Hx of tonsillectomy Social History Social History Patient Tobacco Use Status: Never used Tobacco Smoked in Last 30 Days: No Use of substances other than those prescribed or required for medical reasons: No Advance Directives: No Advance Directives Information Provided: Yes Do you have a plan to hurt others: No Plan Current occupational status: other Current occupation: Right handed, not currently working and not a student currently Physical Exam Vital Signs: Vital Signs: Last Vital Signs Temp 98.3 F 05/19/25 01:36 Pulse 104 H 05/19/25 01:36 Resp 14 05/19/25 01:36 BP 125/71 05/19/25 01:36 Pulse Ox 98 05/19/25 01:36 O2 Del Method Room Air 05/19/25 01:36 BMI result Body Mass Index 26.6 CONSTITUTIONAL: The patient appears non-toxic, well nourished and in no acute distress. Vital signs as documented. HEAD: Atraumatic, normocephalic. EYES: EOMs grossly intact, pupils equal, conjunctiva clear, no exudate. ENT: Nares patent, no discharge. Airway patent, no audible stridor, visible mucosa is pink and moist without noted lesions. NECK: trachea is midline, no obvious masses or gross abnormalities. CHEST: Symmetric movement, normal appearance. LUNGS: Non-labored work of breathing. CARDIAC: No evidence of hypoperfusion. ABDOMEN: Nondistended, no obvious injury. : There is mild swelling of the left testicle with tenderness to palpation, no overlying erythema, purulence, or drainage. There are no penile lesions or urethral drainage noted. EXTREMITIES: Moves all extremities spontaneously without reported pain. No obvious injury or deformity noted. NEURO: Alert and oriented x3, CN II-XII appear grossly intact. Cerebellar Functioning grossly intact. Speech clear and appropriate. SKIN: Warm, dry, color appropriate. No rashes or lesions noted. Medical Decision Making Medical Decision Making MDM Narrative: 2:35 AM 05/19/2025 (Pdero RUSHING): Differential Diagnosis 2:40 AM 05/19/2025 (Pedro RUSHING): The patient is a 24-year-old male presenting to the ED reporting for the past 3 days he has been experiencing left-sided testicular pain radiating to his groin and low back, pain increased tonight around 23:00 prompting him to notify his mother who brought him to the ED for evaluation. The patient reports the left testicle appears to be riding higher than the right. The patient denies associated fever/chills, nausea, vomiting, dysuria, hematuria, or recent injury. The patient denies any sexual activity, has never been sexually active. The patient denies penile lesions or urethral discharge. Exam reveals mild left testicular tenderness, equivocal swelling compared to the right. The remainder of exam is benign, no inguinal hernia appreciated, no overlying scrotal cellulitis. Patient will be evaluated with basic laboratory workup and ultrasound to rule out torsion. 3:43 AM 05/19/2025 (Pedro RUSHING): Patient's laboratory evaluation is at the patient's baseline, mild leukocytosis of 11.8 which is not new, no anemia, electrolyte abnormality or RODRÍGUEZ. Patient's LFTs are mildly abnormal, consistent with baseline. The patient's urinalysis shows no evidence of infection, is negative for nitrites, leukocyte esterase, bacteria, or WBCs. Ultrasound has been obtained and we are awaiting interpretation. 4:39 AM 05/19/2025 (Pedro RUSHING): Patient's ultrasound has resulted and shows no evidence of torsion, no other acute findings, there is an incidental finding of a epididymal cyst, however this is likely not the source of the patient's pain. The patient will be discharged to follow up with PCP for re-evaluation and referral to Urology as indicated. Admission/Observation Consideration of admission/observation: Escalation of care including admission/observation considered Lab Data MDM Lab Attestation statement: I reviewed the patient's lab results. 05/19/25 02:42 05/19/25 02:42 Labs: Lab Results 05/19/25 Range/Units 02:42 WBC 11.8 H (4.8-10.8) X10*3/uL RBC 5.33 (4.60-5.80) X10*6/uL Hgb 15.5 (14.0-18.0) g/dl Hct 45.9 (42.0-52.0) % MCV 86.1 (80.0-98.0) fL MCH 29.1 (27.0-33.0) pg MCHC 33.8 (31.0-36.0) g/dl RDW 12.9 (11.0-16.0) % Plt Count 304 (160-400) X10*3/uL MPV 10.0 (9.4-12.4) fL Immature Gran % (Auto) 0.4 (0.0-0.4) % Neut % (Auto) 73.7 H (45-73) % Lymph % (Auto) 17.4 L (20-40) % [place] % (Auto) 7.4 (2-11) % Eos % (Auto) 0.6 (0-4) % Baso % (Auto) 0.5 (0-2) % Lymph # (Auto) 2.1 (1.2-4.9) X10*3/uL [place] # (Auto) 0.9 (0.1-1.2) X10*3/uL Eos # (Auto) 0.1 (0.0-0.4) X10*3/uL Baso # (Auto) 0.1 (0.0-0.2) X10*3/uL Abs Immat Gran (auto) 0.05 H (0.00-0.03) X10*3/uL Absolute Neuts (auto) 8.7 H (2.0-8.3) x10*3/uL Absolute Nucleated RBC 0.000 (0.0-0.012) X10*3/uL Nucleated RBC % (auto) 0.0 (0.0-0.2) /100WBC Sodium 142 (135-145) mmol/L Potassium 3.7 (3.3-5.1) mmol/L Chloride 106 (96-108) mmol/L Carbon Dioxide 24 (22-29) mmol/L Anion Gap 16 (12-20) BUN 8 L (9-16) mg/dL Creatinine 0.85 (0.5-1.4) mg/dL Estim Creat Clear Calc 118.5 Estimated GFR > 60 Random Glucose 101 (60-115) mg/dL Calcium 9.8 (8.4-10.2) mg/dL Total Bilirubin 0.5 (0.0-1.0) mg/dL AST 39 H (5-37) U/L ALT 68 H (0-40) U/L Alkaline Phosphatase 82 (39-117) U/L Total Protein 8.3 H (6.5-8.0) g/dL Albumin 5.2 H (3.5-5.0) g/dL Urine Color Yellow Urine Appearance Clear Urine pH 5.5 (5.0-9.0) Ur Specific [place] 1.010 (1.005-1.025) Urine Protein Negative (Neg-Trace) mg/dL Urine Glucose (UA) Negative (Negative) mg/dL Urine Ketones Negative (Negative) mg/dL Urine Blood Trace H (Negative) Urine Nitrite Negative (Negative) Ur Leukocyte Esterase Negative (Negative) Urine RBC 0-2 (0-2) /HPF Urine WBC 0-5 (0-5) /HPF Ur Squamous Epith Cells 0-2 (0-2) /HPF Urine Bacteria None Seen (None Seen) Hyaline Casts 0-2 (0-2) /LPF Radiology Impression Discussion of test interpretation with radiology: I have reviewed the radiologist's reading. Radiologist Impression: US scrotum with Doppler Comparison: None provided Findings: Right testicle is normal in size and echogenicity measuring 4.2 x 2.3 x 2.7 cm. There is normal color flow and arterial/venous spectral tracing in the right testicle. There is an incidental right epididymal head cyst measuring up to 7 mm. Right epididymis appears otherwise normal. There is no right hydrocele or varicocele. Left testicle is normal in size and echogenicity measuring 4.4 x 2.1 x 3 cm. There is normal color flow and arterial/venous spectral tracing in the left testicle. There is an incidental tiny left appendix epididymis. The left epididymis appears otherwise normal. There is no left hydrocele or varicocele. IMPRESSION: No acute findings. This document has been electronically signed by: Jose Jade MD on 05/19/2025 04:33:15 Discharge Plan Discharge Clinical Impression: Pain in left testicle Patient Disposition: Home, Self-Care Instructions: Scrotal Pain (ED) Additional Instructions: Thank you for choosing [facility] Emergency Department for your care today. Thankfully your laboratory evaluation, urinalysis, and ultrasound today show no evidence of any acute emergent process causing your testicular pain. At this time there is no indication for admission to the hospital or continued ED observation, and it is safe to discharge you home. The exact cause of your pain is not entirely clear, however seeing as there was no emergent process requiring surgical intervention or admission, it is safe to discharge you home. You should take alternating (staggered) doses of ibuprofen 600mg and Tylenol 1000mg every 4 hours as needed for any additional pain. Please stay well hydrated and get plenty of rest. Please follow up with your primary care physician for re-evaluation, additional management of your symptoms, referral to Urology as deemed appropriate, and continued preventative care. If you do not have a primary care physician, please call the [facility] at [phone] to establish a new primary care physician. While waiting to establish your new primary care physician, you can call our Walk-in Care [facility] at [phone] for non-emergency needs. Please return to the emergency department if you develop a severe or sudden change in your symptoms, a fever over 100.4 that does not improve with Tylenol or Ibuprofen, recurrent vomiting, or any other new or worsening symptoms or concerns. Prescriptions: No Action naproxen 500 mg tablet 500 mg PO BID PRN (Reason: pain) 7 Days Qty: 14 0RF amoxicillin-pot clavulanate 875-125 mg tablet 1 tab PO BID Qty: 14 0RF Referrals: Irma Figueredo MD [Primary Care Provider, Internal Medicine] Clinical Impression: Pain in left testicle Print Language: Armenian
--- NOTE | 2025-05-19 02:43 | PC.NURSE ---
Provider into assess pt. labs ordered and ua.
[2025-05-19 02:57] LABS: MANUAL DIFF FLAG NO
[2025-05-19 02:58] LABS: Hematocrit 45.9 % (42.0-52.0); Hemoglobin 15.5 g/dl (14.0-18.0); Imm Gran Abs Auto 0.05 X10*3/uL (0.00-0.03); Imm Gran Pct Auto 0.4 % (0.0-0.4); Lymphocytes Absolute Auto 2.1 X10*3/uL (1.2-4.9); Mean Corpuscular HGB Conc 33.8 g/dl (31.0-36.0); Mean Corpuscular Hemoglobin 29.1 pg (27.0-33.0); Mean Corpuscular Volume 86.1 fL (80.0-98.0); NRBC Abs Auto 0.000 X10*3/uL (0.0-0.012); NRBC Pct Auto 0.0 /100WBC (0.0-0.2); Platelet Count 304 X10*3/uL (160-400); Red Blood Count 5.33 X10*6/uL (4.60-5.80); White Blood Count 11.8 X10*3/uL (4.8-10.8)
[2025-05-19 02:59] LABS: Appearance Urine Clear; Glucose Urine UA Negative (Negative); PH 5.5 (5.0-9.0); Specific Gravity - Urine 1.010 (1.005-1.025); UMIC TRIGGER UACC YES
[2025-05-19 03:11] LABS: Alanine Aminotransferase 68 U/L (0-40); Albumin Level 5.2 g/dL (3.5-5.0); Alkaline Phosphatase 82 U/L (39-117); Anion Gap 16 (12-20); Aspartate Amino Transferase 39 U/L (5-37); Blood Urea Nitrogen 8 mg/dL (9-16); Calcium 9.8 mg/dL (8.4-10.2); Carbon Dioxide 24 mmol/L (22-29); Chloride 106 mmol/L (96-108); Creatinine Clr Calc Pharmacy 118.5; Estimated Glomerular Filt Rate > 60; Potassium 3.7 mmol/L (3.3-5.1); Sodium 142 mmol/L (135-145); Total Protein 8.3 g/dL (6.5-8.0)
[2025-05-19 05:23] VITALS: BP 116/70; PULSE 85; RESP 14; TEMP 36.8; O2SAT 98
== END 2025-05-19 05:27 | disposition home or self-care (01) ==
PROVIDERS: Physician Assistant; Emergency Provider Emergency Medicine; PCP Internal Medicine
DX: N50.812 Left testicular pain (principal); M54.50 Low back pain, unspecified; R10.22 Pelvic and perineal pain left side
CPT/HCPCS: 36415; 76870; 80053; 81001; 81003; 85025; 93975; 99284

== ENCOUNTER → 2025-05-19 02:33 | Outpatient (BNV) | payer OTHER, SELFPAY | PROVIDERS: Emergency Provider Emergency Medicine; PCP Internal Medicine; Visit Provider Radiology Diagnostic Radiology | DX: N50.812 Left testicular pain (principal); N50.89 Other specified disorders of the male genital organs | CPT/HCPCS: 76870 ==